=== PATIENT | female | born 1970 | race Caucasian/White ===

== ENCOUNTER 2021-01-24 09:21 | Outpatient (REF) | payer OTHER, SELFPAY ==
[2021-01-24 11:57] LABS: Alanine Aminotransferase 19 U/L (0-31); Albumin Level 4.5 g/dL (3.5-5.0); Alkaline Phosphatase 74 U/L (39-117); Anion Gap 13 (12-20); Aspartate Amino Transferase 17 U/L (5-31); Bilirubin Total 0.6 mg/dL (0.0-1.0); Blood Urea Nitrogen 11 mg/dL (9-16); Calcium 9.6 mg/dL (8.4-10.2); Carbon Dioxide 26 mmol/L (22-29); Chloride 104 mmol/L (96-108); Cholesterol 261 mg/dL; Estimated Glomerular Filt Rate > 60; Glucose Fasting 95 mg/dL (60-99); HDL Cholesterol 61 mg/dL; LDL Cholesterol Calculated 178 mg/dl; Potassium 4.5 mmol/L (3.3-5.1); Sodium 138 mmol/L (135-145); Total Protein 7.3 g/dL (6.5-8.0); Triglycerides 111 mg/dL
[2021-01-24 12:02] LABS: Hematocrit 42.3 % (37-47); Hemoglobin 13.7 g/dl (12.0-16.0); Mean Corpuscular HGB Conc 32.4 g/dl (31.0-35.0); Mean Corpuscular Hemoglobin 26.8 pg (27.0-33.0); Mean Corpuscular Volume 82.8 fL (80-98); Mean Platelet Volume 11.8 fL (9.4-12.3); Platelet Count 227 X10*3/uL (160-400); Red Blood Count 5.11 X10*6/uL (4.20-5.50); Red Cell Distribution Width 13.3 % (11.0-16.0)
[2021-01-24 12:20] LABS: TSH reflex Free T4 1.14 uIU/mL (0.32-4.0)
[2021-01-24 13:19] LABS: CT PCR NOT DETECTED (Not Detect.); NG PCR NOT DETECTED (Not Detect.)
== END 2021-01-24 09:22 | disposition home or self-care (01) ==
LOC: HO.LAB 09:21
PROVIDERS: Visit Provider Internal Medicine
DX: Z00.00 Encounter for general adult medical examination without abnormal findings (principal); Z12.4 Encounter for screening for malignant neoplasm of cervix; Z11.3 Encounter for screening for infections with a predominantly sexual mode of transmission
CPT/HCPCS: 36415; 80053; 80061; 84443; 85027; 87491; 87591; 88142

== ENCOUNTER 2021-01-24 09:35 | Outpatient (REF) | payer OTHER, SELFPAY | END 2021-01-24 09:36 | disposition home or self-care (01) | LOC: HO.HMGCLDS 09:35 | PROVIDERS: PCP Internal Medicine; Visit Provider Internal Medicine | DX: Z13.89 Encounter for screening for other disorder (principal) ==

== ENCOUNTER 2021-03-17 15:47 | Outpatient (REF) | payer OTHER, SELFPAY ==
--- NOTE | ~2021-03-17 | MM_ITS ---
EXAMINATION: MM SCREENING DIGITAL BREAST TOMOSYNTHESIS, BILATERAL CLINICAL INFORMATION: Screening. Asymptomatic. The lifetime risk of breast cancer based on the Tyrer-Cuzick Model is 12%. COMPARISON: Mammography: None TECHNIQUE: Digital breast tomosynthesis is performed in both the craniocaudal and mediolateral oblique views along with computer-aided detection (CAD). Synthesized 2D images are generated from the tomosynthesis. FINDINGS: There are scattered areas of fibroglandular density (ACR BI-RADS breast composition Category b). RIGHT BREAST: 2 lobulated circumscribed densities are seen within the upper outer aspect of the right breast for which spot compression film and possible ultrasound is recommended. No suspicious grouping of microcalcifications is identified. LEFT BREAST: 2 circumscribed densities which are lobular are seen within the lateral aspect of the left breast one of which is inferior and the other along nipple line. No suspicious grouping of microcalcifications identified. MM/MM tomosynthesis screening BI IMPRESSION: Bilateral breast densities which may represent intra-mammary lymph nodes. Spot compression views and ultrasound recommended for further evaluation. ASSESSMENT: BI-RADS 0: Incomplete - Need Additional Imaging Evaluation RECOMMENDATION: 1. Additional views of both breasts. 2. Targeted ultrasound if warranted after review of the additional views. 3. Radiology department staff will contact the patient for additional imaging. This patient's information was entered into a reminder system with a target due date for their next mammogram.
== END 2021-03-17 15:48 | disposition home or self-care (01) ==
LOC: HO.MAMMO 15:47
PROVIDERS: Visit Provider Internal Medicine
DX: Z12.31 Encounter for screening mammogram for malignant neoplasm of breast (principal)
CPT/HCPCS: 77063; 77067

== ENCOUNTER 2021-03-21 11:18 | Outpatient (REF) | payer OTHER, SELFPAY ==
--- NOTE | ~2021-03-21 | MM_ITS ---
EXAMINATION: MM DIAGNOSTIC DIGITAL BREAST TOMOSYNTHESIS, BILATERAL BILATERAL TARGETED BREAST ULTRASOUND CLINICAL INFORMATION: Bilateral densities. COMPARISON: Mammography: 03/17/2021 TECHNIQUE: Digital breast tomosynthesis is performed. 2D images are generated from the tomosynthesis. The following views are obtained: Bilateral spot compression views and craniocaudal and 90 degree mediolateral projections. Targeted bilateral breast ultrasound. FINDINGS: There are scattered areas of fibroglandular density (ACR BI-RADS breast composition Category b). Additional views of the right breast demonstrate persistence of an approximately 10 x 8 mm lobular circumscribed density approximately 9 cm from the nipple superiorly. The deeper superior density appears to represent superimposed fibroglandular tissue for which 6-month follow-up study is recommended. Within the left breast there is persistence of a circumscribed lobular density measuring approximately 9 x 6 mm in size approximately 6 cm from the nipple. This is seen about the inferior lateral aspect of the left breast. The density about the deep lateral aspect of the left breast appears to represent superimposed breast parenchyma for which 6-month follow-up study is recommended. Targeted right breast ultrasound demonstrates at the 12 o'clock position approximately 8 cm from the nipple a complex grouping of cysts with increased through sound transmission and no distal sound shadowing. This measures approximately 1.5 x 1.0 x 0.4 cm in size and has a small amount of blood flow within tissue between some cysts. The lesion is wider than it is tall. Within the left breast there is what appears to be either a complex cyst or cluster of cysts without internal vascularity. There is no distal sound shadowing and there is some mild distal sound enhancement seen. Results are discussed with the patient at time of visit. MM/MM tomosynthesis added view BI IMPRESSION: Bilateral complex cystic lesions identified for which bilateral targeted breast ultrasound in 6 months is recommended. Bilateral regions of asymmetric tissue for six-month bilateral mammography is recommended. ASSESSMENT: BI-RADS 3: Probably Benign. RECOMMENDATION: Diagnostic mammography in 6 months with bilateral targeted breast ultrasound. This patient's information was entered into a reminder system with a target due date for their next mammogram.
--- NOTE | ~2021-03-21 | US_ITS ---
EXAMINATION: US DIAGNOSTIC ULTRASOUND BREAST, LEFT CLINICAL INFORMATION: Bilateral densities. COMPARISON: Mammography of same day and March 17, 2021. TECHNIQUE: Ultrasound of the breast is performed with real-time gold scale imaging and color Doppler. FINDINGS: Targeted right breast ultrasound demonstrates at the 12 o'clock position approximately 8 cm from the nipple a complex grouping of cysts with increased through sound transmission and no distal sound shadowing. This measures approximately 1.5 x 1.0 x 0.4 cm in size and has a small amount of blood flow within tissue between some cysts. The lesion is wider than it is tall. Within the left breast there is what appears to be either a complex cyst or cluster of cysts without internal vascularity. There is no distal sound shadowing and there is some mild distal sound enhancement seen. Results are discussed with the patient at time of visit. US/US breast LT limited IMPRESSION: Bilateral complex cystic lesions identified for which bilateral targeted breast ultrasound in 6 months is recommended. Bilateral regions of asymmetric tissue for six-month bilateral mammography is recommended. ASSESSMENT: BI-RADS 3: Probably Benign. RECOMMENDATION: Diagnostic mammography in 6 months with bilateral targeted breast ultrasound.
--- NOTE | ~2021-03-21 | US_ITS ---
EXAMINATION: US DIAGNOSTIC ULTRASOUND BREAST, RIGHT CLINICAL INFORMATION: Bilateral densities. COMPARISON: Mammography of same day and March 17, 2021. TECHNIQUE: Ultrasound of the breast is performed with real-time gold scale imaging and color Doppler. FINDINGS: Targeted right breast ultrasound demonstrates at the 12 o'clock position approximately 8 cm from the nipple a complex grouping of cysts with increased through sound transmission and no distal sound shadowing. This measures approximately 1.5 x 1.0 x 0.4 cm in size and has a small amount of blood flow within tissue between some cysts. The lesion is wider than it is tall. Within the left breast there is what appears to be either a complex cyst or cluster of cysts without internal vascularity. There is no distal sound shadowing and there is some mild distal sound enhancement seen. Results are discussed with the patient at time of visit. US/US breast RT limited IMPRESSION: Bilateral complex cystic lesions identified for which bilateral targeted breast ultrasound in 6 months is recommended. Bilateral regions of asymmetric tissue for six-month bilateral mammography is recommended. ASSESSMENT: BI-RADS 3: Probably Benign. RECOMMENDATION: Diagnostic mammography in 6 months with bilateral targeted breast ultrasound.
== END 2021-03-21 11:19 | disposition home or self-care (01) ==
LOC: HO.MAMMO 11:18
PROVIDERS: Visit Provider Internal Medicine
DX: R92.2 Inconclusive mammogram (principal)
CPT/HCPCS: 76642; 77062; 77066

== ENCOUNTER 2021-08-08 16:26 | Outpatient (REF) | payer OTHER, SELFPAY ==
[2021-08-08 18:53] LABS: Influenza A PCR NEGATIVE (Negative); Influenza B PCR NEGATIVE (Negative); Resp Syncy Virus RNA Qual PCR NEGATIVE (Negative); SARS COV2 PCR INHOUSE NEGATIVE (Negative)
== END 2021-08-08 16:27 | disposition home or self-care (01) ==
LOC: HO.LNP 16:26
PROVIDERS: Visit Provider Internal Medicine
DX: Z20.822 Contact with and (suspected) exposure to COVID-19 (principal); R43.9 Unspecified disturbances of smell and taste
CPT/HCPCS: 0241U

== ENCOUNTER 2021-08-21 14:21 | Outpatient (REF) | payer OTHER, SELFPAY ==
--- NOTE | ~2021-08-21 | MM_ITS ---
EXAMINATION: MM DIAGNOSTIC DIGITAL BREAST TOMOSYNTHESIS, BILATERAL US DIAGNOSTIC ULTRASOUND BREAST, BILATERAL CLINICAL INFORMATION: Short interval six-month follow-up asymmetric densities likely related to clustered/grouped cysts, initially noted at baseline exam. No known family history breast cancer. The lifetime risk of breast cancer based on the Tyrer-Cuzick Model is 12%. COMPARISON: Mammography: 03/21/2021, 03/17/2021 (baseline, BI-RADS 0); bilateral targeted breast ultrasound 03/21/2021. TECHNIQUE: Digital breast tomosynthesis is performed in both the craniocaudal and mediolateral oblique views along with computer-aided detection (CAD). Synthesized 2D images are generated from the tomosynthesis. Ultrasound left breast is performed 3:00 through 6:00 position and right breast 10:00 through 2:00 position. Grayscale imaging and color Doppler are performed without and with harmonics. FINDINGS: Mammography: There are scattered areas of fibroglandular density (ACR BI-RADS breast composition Category b). There is no significant mass or architectural abnormality. No developing density in either breast or abnormal calcifications. The axilla and skin contours are unremarkable. The bilobed nodularity 6:00 mid left breast noted at baseline exam is decreased. The lobulated nodule corresponding to grouped cysts anterior mid 12:00 right breast appear stable. Ultrasound: Targeted ultrasound left breast demonstrates small benign cyst with avascular internal septation 4:00 position approximately 5 cm from nipple measuring 0.5 cm. This is decreased in size from prior ultrasound measurements 0.7 x 0.6 x 0.6 cm. There is no solid mass or architectural abnormality. Finding is considered to be benign. Targeted ultrasound right breast demonstrates stable grouped microcysts 12:00 position 5 cm from nipple measuring approximately 1.5 x 1.0 x 0.5 cm. There is spoke wheel pattern of septation and no interval solid component. This may be reassessed again at time of annual bilateral mammography, due in 6 months. Results are provided to the patient at time of visit by the technologist. MM/MM tomosynthesis diagnostic BI IMPRESSION: 1.Right: Grouped microcysts 12:00 position stable. Mammography stable. 2. Left: Benign complicated cyst on ultrasound decreased. No mammographic evidence of malignancy. ASSESSMENT: BI-RADS 3: Probably Benign RECOMMENDATION: Diagnostic mammography and targeted right breast ultrasound at time of annual bilateral mammography, due in 6 months. This patient's information was entered into a reminder system with a target due date for their next mammogram.
== END 2021-08-21 14:22 | disposition home or self-care (01) ==
LOC: HO.MAMMO 14:21
PROVIDERS: Visit Provider Internal Medicine
DX: R92.2 Inconclusive mammogram (principal)
CPT/HCPCS: 76642; 77062; 77066

== ENCOUNTER 2021-09-18 06:24 | Outpatient (REF) | payer OTHER, SELFPAY | END 2021-09-18 06:25 | disposition home or self-care (01) | LOC: HO.HMGCLDS 06:24 | PROVIDERS: Visit Provider Internal Medicine | DX: Z20.822 Contact with and (suspected) exposure to COVID-19 (principal) | CPT/HCPCS: C9803; U0003; U0005 ==

== ENCOUNTER 2022-01-15 09:36 | Outpatient (REF) | payer OTHER, SELFPAY ==
[2022-01-15 13:10] LABS: Influenza A PCR NEGATIVE (Negative); Influenza B PCR NEGATIVE (Negative); Resp Syncy Virus RNA Qual PCR NEGATIVE (Negative); SARS COV2 PCR INHOUSE NEGATIVE (Negative)
== END 2022-01-15 09:37 | disposition home or self-care (01) ==
LOC: HO.LAB 09:36
PROVIDERS: Visit Provider Nurse Practitioner Acute Care
DX: R68.89 Other general symptoms and signs (principal); Z20.822 Contact with and (suspected) exposure to COVID-19
CPT/HCPCS: 0241U

== ENCOUNTER 2022-04-27 13:55 | Outpatient (REF) | payer OTHER, SELFPAY ==
--- NOTE | ~2022-04-27 | MM_ITS ---
EXAMINATION: MM DIAGNOSTIC DIGITAL BREAST TOMOSYNTHESIS, BILATERAL US DIAGNOSTIC ULTRASOUND BREAST, RIGHT CLINICAL INFORMATION: Due for yearly. Also follow-up clustered microcysts 12:00 right breast initially noted at baseline. The lifetime risk of breast cancer based on the Tyrer-Cuzick Model is 17%. COMPARISON: Mammography: 08/21/2021, 03/21/2021, 03/17/2021 (baseline, BI-RADS 0), bilateral breast ultrasound 08/21/2021, 03/21/2021. TECHNIQUE: Digital breast tomosynthesis is performed in both the craniocaudal and mediolateral oblique views along with computer-aided detection (CAD). Synthesized 2D images are generated from the tomosynthesis. Ultrasound right breast is targeted to the upper breast using grayscale imaging and color Doppler without and with harmonics. FINDINGS: There are scattered areas of fibroglandular density (ACR BI-RADS breast composition Category b). Parenchymal pattern is similar to prior studies. There are scattered small stable asymmetries. No developing density or interval significant mass or architectural abnormality. No abnormal calcifications. The axilla and skin contours are unremarkable. No significant changes. Ultrasound right breast demonstrates focal grouped microcysts encompassing an area of approximately 1.5 x 0.7 x 0.9 cm. There is a central spoke wheel pattern of septation as before. No interval solid component or suspicious color flow. No interval solid mass or architectural abnormality. Results are provided to the patient at time of visit by the technologist. Management plan is for follow-up right ultrasound at next bilateral annual mammography to conclude long-term surveillance. MM/MM tomosynthesis diagnostic BI IMPRESSION: -Mammography shows no significant changes from prior studies. -Stable clustered microcysts 12:00 right breast. ASSESSMENT: BI-RADS 3: Probably Benign RECOMMENDATION: Diagnostic bilateral mammography and right breast ultrasound at time of next annual exam, due in 12 months. This patient's information was entered into a reminder system with a target due date for their next mammogram.
== END 2022-04-27 13:56 | disposition home or self-care (01) ==
LOC: HO.MAMMO 13:55
PROVIDERS: PCP Internal Medicine; Visit Provider Internal Medicine
DX: N63.15 Unspecified lump in the right breast, overlapping quadrants (principal)
CPT/HCPCS: 76642; 77062; 77066

== ENCOUNTER 2023-04-23 11:00 | Outpatient (AMB) | payer OTHER, SELFPAY ==
--- NOTE | 2023-04-23 11:32 | MHC.PC.OV ---
Vital Signs 04/23/23 11:33 Height 5 ft 2 in Weight 238 lb 6 oz BMI 43.6 BP 130/84 Blood Pressure Location Rt brachial Position Sitting Pulse 82 Pulse Source Pulse Oximeter Pulse Oximetry (%) 96 Oxygen Delivery Method Room Air Intake Visit Reasons: Joint Pain/ Lack Of Energy Intake Note: pt says she has been having weight gain,low energy,joint pain and swollen feet pt says this has been over the last year Allergies No Known Allergies Allergy (Verified 04/23/23 11:35) Medication List - Last Reconciled 04/23/23 by Franci Thakkar MD acetaminophen ER (Tylenol Arthritis Pain) 1,300 mg PO Q8H Tobacco use date assessed: 04/23/23 Dental Screening Dental Screen Date: 04/23/23 Did you have a dental visit in the last 12 months?: No Did you have a dental problem in the last 6 months where you did not have access to dental care?: No Was dental information given to patient?: Patient has dentist HPI Joint Pain/ Lack Of Energy HPI Details Pt presents bilateral knee and feet pain and stiffness for 1 year, getting worse. Pt gained 27 lbs in 2 years. Patient complains of feeling tired not getting restful sleep at night an episode of witnessed apnea. [facility] Medical History Annual physical exam Surgical History H/O LEEP Family History Father CVD (cardiovascular disease) CAD (coronary artery disease) Mother No problems noted. Social History Alcohol intake: current Alcohol intake frequency: holidays/special occasions only Patient Tobacco Use Status: Former Tobacco user e-Cigarette/Vaping Use: Never Used Cognitive needs: No Hearing needs: No Vision needs: No Review of Systems Const All systems reviewed & are unremarkable except as noted in HPI and below Reports no additional complaints Eyes Reports no additional complaints ENT Reports no additional complaints Card Reports no additional complaints Resp Reports no additional complaints GI Reports no additional complaints Reports no additional complaints Musc Reports no additional complaints Physical exam (Primary Care) Vital Signs: Last Vital Signs Pulse 82 04/23/23 11:33 BP 130/84 04/23/23 11:33 Pulse Ox 96 04/23/23 11:33 Oxygen Delivery Method Room Air 04/23/23 11:33 BMI result Body Mass Index 43.6 Tobacco/Smoking Status: Tobacco use Status Tobacco use date assessed 04/23/23 04/23/23 11:38 Patient Tobacco Use Status Former Tobacco user 04/23/23 11:38 e-Cigarette/Vaping Use Never Used 04/23/23 11:38 Const General: no acute distress HENMT Ears: hearing grossly normal bilaterally Mouth: Normal oral and palatal mucosa present Eyes General: appearance normal, both eyes and all related structures Neck Neck: Yes no lymphadenopathy and Yes supple Resp Effort & Inspection: normal respiratory effort Auscultation: clear to auscultation bilaterally Cardio Rhythm: regular rhythm Heart sounds: S1 normal heart sound present and S2 normal heart sound present GI Inspection: Yes normal to inspection Palpation (GI): Soft to palpation Percussion: Yes normal to percussion Auscultation: normal bowel sounds Extrem Other: Slightly decreased range of motion both knees no soft tissue swelling erythema warmth Assessment and Plan Assessment & Plan (1) Knee pain, bilateral: Code(s): M25.561 - Pain in right knee; M25.562 - Pain in left knee Plan: Check x-ray (2) Sleep apnea: Code(s): G47.30 - Sleep apnea, unspecified Plan: Check sleep study (3) Annual physical exam: Code(s): Z00.00 - Encounter for general adult medical examination without abnormal findings Plan: Patient will return for physical. She will schedule an appointment for mammogram will be referred to GI for colonoscopy (4) Fatigue: Code(s): R53.83 - Other fatigue Plan: Obtain fasting blood work including TSH and vitamin-D level (5) Arthralgia: Code(s): M25.50 - Pain in unspecified joint Plan: Check arthritis panel (6) Obese: Code(s): E66.9 - Obesity, unspecified Plan: Weight loss discussed with the patient Orders: Orders XR knee standing BI Today M25.561 - Pain in right knee, M25.562 - Pain in left knee Vitamin B12 and Folate Today M25.561 - Pain in right knee, M25.562 - Pain in left knee, R53.83 - Other fatigue, Z00.00 - Encounter for general adult medical examination without abnormal findings Comprehensive [place]. Panel Fast Today M25.561 - Pain in right knee, M25.562 - Pain in left knee, R53.83 - Other fatigue, Z00.00 - Encounter for general adult medical examination without abnormal findings Lipid Panel Today M25.561 - Pain in right knee, M25.562 - Pain in left knee, R53.83 - Other fatigue, Z00.00 - Encounter for general adult medical examination without abnormal findings TSH reflex Free T4 Today M25.561 - Pain in right knee, M25.562 - Pain in left knee, R53.83 - Other fatigue, Z00.00 - Encounter for general adult medical examination without abnormal findings Vitamin D 25-OH Total Today M25.561 - Pain in right knee, M25.562 - Pain in left knee, R53.83 - Other fatigue, Z00.00 - Encounter for general adult medical examination without abnormal findings Complete Blood Count Auto Diff Today M25.561 - Pain in right knee, M25.562 - Pain in left knee, R53.83 - Other fatigue, Z00.00 - Encounter for general adult medical examination without abnormal findings RT home sleep study Today G47.30 - Sleep apnea, unspecified, M25.561 - Pain in right knee, M25.562 - Pain in left knee, R53.83 - Other fatigue, Z00.00 - Encounter for general adult medical examination without abnormal findings Cyclic Citrullinated Peptide Today M25.50 - Pain in unspecified joint Rheumatoid Factor Today M25.50 - Pain in unspecified joint Erythrocyte Sedimentation Rate Today M25.50 - Pain in unspecified joint Referrals Gastroenterology Referral Z00.00 - Encounter for general adult medical examination without abnormal findings Coding Level of Care Code Est Pt Level 4 (71565) Diagnoses Knee pain, bilateral M25.561; M25.562 Sleep apnea G47.30 Annual physical exam Z00.00 Fatigue R53.83 Arthralgia M25.50 Obese E66.9
[2023-04-23 11:33] VITALS: BP 130/84; PULSE 82; O2SAT 96; BMI 43.6
== END 2023-04-23 12:23 | disposition home or self-care (01) ==
PROVIDERS: PCP Internal Medicine; Visit Provider Internal Medicine
DX: M25.561 Pain in right knee (principal); M25.562 Pain in left knee; E66.9 Obesity, unspecified; Z68.41 Body mass index [BMI] 40.0-44.9, adult; G47.30 Sleep apnea, unspecified; R53.83 Other fatigue
CPT/HCPCS: 99214

== ENCOUNTER 2023-04-26 06:31 | Outpatient (REF) | payer OTHER, SELFPAY ==
--- NOTE | ~2023-04-26 | XR_ITS ---
EXAMINATION: XR KNEE AP STANDING CLINICAL INFORMATION: Right knee pain. COMPARISON: None available. TECHNIQUE: AP bilateral standing view of the knees was obtained along with a lateral weightbearing view of each knee. FINDINGS: There are mild degenerative changes with narrowing of both compartments. No chondrocalcinosis is seen. Some minimal osteophyte formation present most marked in the medial and lateral femoral condyles on the left. A trace effusion is noted on the right with no left-sided joint effusion. No fractures or bony destructive lesions. XR/XR knee standing BI IMPRESSION: Mild degenerative changes both knees. Trace right knee effusion.
[2023-04-26 11:26] LABS: MANUAL DIFF FLAG NO
[2023-04-26 11:47] LABS: Basophils Percent Auto 0.5 % (0-2); Eosinophils Absolute Auto 0.1 X10*3/uL (0.0-0.4); Eosinophils Percent Auto 1.7 % (0-4); Hematocrit 39.9 % (37.0-47.0); Hemoglobin 12.4 g/dl (12.0-16.0); Imm Gran Abs Auto 0.02 X10*3/uL (0.00-0.03); Imm Gran Pct Auto 0.3 % (0.0-0.4); Lymphocytes Absolute Auto 1.5 X10*3/uL (1.2-4.9); Lymphocytes Percent Auto 22.5 % (20-40); Mean Corpuscular HGB Conc 31.1 g/dl (31.0-35.0); Mean Corpuscular Hemoglobin 25.7 pg (27.0-33.0); Mean Corpuscular Volume 82.6 fL (80.0-98.0); Mean Platelet Volume 11.6 fL (9.4-12.3); Monocytes Absolute Auto 0.5 X10*3/uL (0.1-1.2); Monocytes Percent Auto 8.3 % (2-11); Neutrophils Absolute Auto 4.3 x10*3/uL (2.0-8.3); Neutrophils Percent Auto 66.7 % (45-73); Platelet Count 319 X10*3/uL (160-400); Red Blood Count 4.83 X10*6/uL (4.20-5.50); Red Cell Distribution Width 14.2 % (11.0-16.0); White Blood Count 6.5 X10*3/uL (4.8-10.8)
[2023-04-26 12:08] LABS: Rheumatoid Factor < 13.0 IU/mL (<15.0)
[2023-04-26 12:25] LABS: Erythrocyte Sedimentation Rate 12 MM/HR (0-20)
[2023-04-26 12:38] LABS: Folate 6.5 ng/mL (> or = 4.0); Vitamin B12 347 pg/mL (200-900)
[2023-04-26 12:39] LABS: Alanine Aminotransferase 29 U/L (0-31); Alkaline Phosphatase 73 U/L (39-117); Anion Gap 14 (12-20); Aspartate Amino Transferase 20 U/L (5-31); Bilirubin Total 0.4 mg/dL (0.0-1.0); Blood Urea Nitrogen 13 mg/dL (9-16); Calcium 9.2 mg/dL (8.4-10.2); Carbon Dioxide 22 mmol/L (22-29); Chloride 105 mmol/L (96-108); Cholesterol 208 mg/dL; Estimated Glomerular Filt Rate > 60; Glucose Fasting 105 mg/dL (60-99); HDL Cholesterol 49 mg/dL; LDL Cholesterol Calculated 136 mg/dl; Potassium 4.1 mmol/L (3.3-5.1); Sodium 137 mmol/L (135-145); Total Protein 6.9 g/dL (6.5-8.0); Triglycerides 115 mg/dL
[2023-04-26 12:43] LABS: TSH reflex Free T4 2.15 uIU/mL (0.32-4.0); Vitamin D 25-OH Total 27.4 ng/mL (>30)
[2023-04-28 15:39] LABS: Cyclic Citrullinated Peptide <16 UNITS
== END 2023-04-26 06:32 | disposition home or self-care (01) ==
LOC: HO.HMGCX 06:31
PROVIDERS: PCP Internal Medicine; Visit Provider Internal Medicine
DX: Z00.00 Encounter for general adult medical examination without abnormal findings (principal); M25.50 Pain in unspecified joint; M25.561 Pain in right knee; M25.562 Pain in left knee; R53.83 Other fatigue
CPT/HCPCS: 36415; 73565; 80053; 80061; 82306; 82607; 82746; 84443; 85025; 85652; 86200; 86431

== ENCOUNTER 2023-05-05 13:49 | Outpatient (REF) | payer OTHER, SELFPAY ==
--- NOTE | ~2023-05-05 | MM_ITS ---
EXAMINATION: MM DIAGNOSTIC DIGITAL BREAST TOMOSYNTHESIS, BILATERAL US BREAST LIMITED, RIGHT MAMMOGRAPHY: CLINICAL INFORMATION: Due for yearly. Also follow-up clustered microcysts 12:00 right breast initially noted at Baseline exam. The lifetime risk of breast cancer based on the Tyrer-Cuzick Model is 17%. COMPARISON: Mammography: 04/27/2022, 08/21/2021, 03/21/2021, 03/17/2021. TECHNIQUE: Digital breast tomosynthesis is performed in both the craniocaudal and mediolateral oblique views along with computer-aided detection (CAD). Synthesized 2D images are generated from the tomosynthesis. 3-D bilateral nipple in profile CC views were also obtained. FINDINGS: There are scattered areas of fibroglandular density (ACR BI-RADS breast composition Category b). The overall parenchymal pattern is unchanged from prior studies. There are scattered small stable asymmetries bilaterally. No developing mass, area of architectural distortion, or suspicious grouped calcifications. Results were provided to the patient at time of visit by the technologist. ULTRASOUND: CLINICAL INFORMATION: 6 month follow-up complicated cyst 12:00 axis right breast. COMPARISON: 04/27/2022, 08/21/2021, 03/21/2021. TECHNIQUE: Targeted sonographic evaluation right breast 12:00 axis was performed using a high frequency linear transducer. Selected archived documentation. FINDINGS: RIGHT BREAST: There is a stable complicated cyst in the right breast at the 12:00 axis, 5 cm from the nipple, measuring 1.0 x 0.7 x 1.2 cm. This is unchanged, and has demonstrated a two-year stability, reflecting a benign entity. No additional suspicious abnormalities detected. MM/MM tomosynthesis diagnostic BI IMPRESSION: Stable benign findings right breast 12:00 axis related to a complicated cyst, demonstrating stability over 2 years. Otherwise, stable benign findings on bilateral mammography. Recommend resuming routine annual screening. OVERALL ASSESSMENT: Mammography: BI-RADS 2 - Benign Findings Ultrasound: BI-RADS 2 - Benign Findings RECOMMENDATION: 1 year F/U This patient's information was entered into a reminder system with a target due date for their next mammogram.
== END 2023-05-05 13:50 | disposition home or self-care (01) ==
LOC: HO.MAMMO 13:49
PROVIDERS: PCP Internal Medicine; Visit Provider Internal Medicine
DX: R92.2 Inconclusive mammogram (principal)
CPT/HCPCS: 76642; 77062; 77066

== ENCOUNTER → 2023-05-05 14:00 | Outpatient (BNV) | payer OTHER, SELFPAY | PROVIDERS: PCP Internal Medicine; Visit Provider Radiology Diagnostic Radiology | DX: N60.11 Diffuse cystic mastopathy of right breast (principal) | CPT/HCPCS: 76642; 77062; 77066 ==

== ENCOUNTER 2023-06-04 13:26 | Outpatient (AMB) | payer OTHER, SELFPAY ==
--- NOTE | 2023-06-04 13:40 | A.OFFPC_ITS ---
Vital Signs 06/04/23 13:41 Height 5 ft 2 in Weight 238 lb BMI 43.5 BP 104/66 Blood Pressure Location Lt brachial Position Sitting Pulse 90 Pulse Source Pulse Oximeter Pulse Oximetry (%) 96 Oxygen Delivery Method Room Air Intake Visit Reasons: 1 Month follow up/PE Intake Note: Ptis here today for 1 month follow up. Allergies No Known Allergies Allergy (Verified 06/04/23 13:43) Tobacco use date assessed: 06/04/23 HPI 1 Month follow up/PE HPI Details Pt presents for PE. [facility] Medical History (Updated 06/04/23 @ 14:05 by Franci Thakkar MD) Annual physical exam Surgical History H/O LEEP Family History Father CVD (cardiovascular disease) CAD (coronary artery disease) Mother No problems noted. Social History Alcohol intake: current Alcohol intake frequency: holidays/special occasions only Patient Tobacco Use Status: Former Tobacco user e-Cigarette/Vaping Use: Never Used Cognitive needs: No Hearing needs: No Vision needs: No Review of Systems Const All systems reviewed & are unremarkable except as noted in HPI and below Reports no additional complaints Eyes Reports no additional complaints ENT Reports no additional complaints Card Reports no additional complaints Resp Reports no additional complaints GI Reports no additional complaints Reports no additional complaints Skin/Breast Reports system reviewed and no additional complaints, except as documented Physical exam (Primary Care) Vital Signs: Last Vital Signs Pulse 90 06/04/23 13:41 BP 104/66 06/04/23 13:41 Pulse Ox 96 06/04/23 13:41 Oxygen Delivery Method Room Air 06/04/23 13:41 BMI result Body Mass Index 43.5 Tobacco/Smoking Status: Tobacco use Status Tobacco use date assessed 06/04/23 06/04/23 13:46 Patient Tobacco Use Status Former Tobacco user 06/04/23 13:46 e-Cigarette/Vaping Use Never Used 06/04/23 13:46 Const General: no acute distress HENMT Head: Yes normal to inspection Ears: hearing grossly normal bilaterally General nose exam: Normal external nose present Face and sinus: Yes normal facial exam Mouth: Normal oral and palatal mucosa present Throat: Yes posterior oropharynx normal Eyes General: appearance normal, both eyes and all related structures Neck Neck: Yes no lymphadenopathy and Yes supple Resp Effort & Inspection: normal respiratory effort Auscultation: clear to auscultation bilaterally Cardio Rhythm: regular rhythm Heart sounds: S1 normal heart sound present and S2 normal heart sound present GI Inspection: Yes normal to inspection Palpation (GI): Soft to palpation Percussion: Yes normal to percussion Auscultation: normal bowel sounds Assessment and Plan Assessment & Plan (1) Annual physical exam: Comment: NEGATIVE PAP SMEAR 01/2021 Code(s): Z00.00 - Encounter for general adult medical examination without abnormal findings Plan: WELL BALANCED DIET REGULAR PHYSICAL ACTIVITY DISCUSSED WITH THE PATIENT ,SHE IS UP-TO-DATE WITH MAMMOGRAM AND WILL HAVE A COLONOSCOPY (2) Obese: Code(s): E66.9 - Obesity, unspecified Plan: Weight loss discussed with the patient (3) Hyperlipidemia: Code(s): E78.5 - Hyperlipidemia, unspecified Plan: Low-cholesterol diet regular physical activity weight loss discussed with the patient return in 6 months with a fasting labs before to monitor lipid profile Orders: Orders Lipid Panel 6 Months E66.9 - Obesity, unspecified, E78.5 - Hyperlipidemia, unspecified Comprehensive [place]. Panel Fast 6 Months E66.9 - Obesity, unspecified, E78.5 - Hyperlipidemia, unspecified Hemoglobin A1c 6 Months E66.9 - Obesity, unspecified, E78.5 - Hyperlipidemia, unspecified Coding Level of Care Code Est Pt Prev Care 40-64y(08017) Diagnoses Annual physical exam Z00.00 Obese E66.9 Hyperlipidemia E78.5
[2023-06-04 13:41] VITALS: BP 104/66; PULSE 90; O2SAT 96; BMI 43.5
== END 2023-06-04 14:07 | disposition home or self-care (01) ==
PROVIDERS: PCP Internal Medicine; Visit Provider Internal Medicine
DX: Z00.00 Encounter for general adult medical examination without abnormal findings (principal); E66.9 Obesity, unspecified; E78.5 Hyperlipidemia, unspecified; Z68.41 Body mass index [BMI] 40.0-44.9, adult
CPT/HCPCS: 99396

== ENCOUNTER → 2023-06-14 13:50 | Outpatient (REF) | payer OTHER, SELFPAY | LOC: HO.SL 13:50 | PROVIDERS: PCP Internal Medicine; Visit Provider Internal Medicine | DX: G47.30 Sleep apnea, unspecified (principal) | CPT/HCPCS: 95806 ==

== ENCOUNTER → 2023-06-14 14:06 | Outpatient (BNV) | payer OTHER, SELFPAY | PROVIDERS: PCP Internal Medicine; Visit Provider Internal Medicine | DX: R06.83 Snoring (principal) | CPT/HCPCS: 95806 ==

== ENCOUNTER 2023-06-16 14:07 | Outpatient (AMB) | payer OTHER, SELFPAY ==
--- NOTE | 2023-06-16 14:14 | A.OFFVIS_ITS ---
Intake Vital Signs 06/16/23 14:15 Height 5 ft 2 in Weight 235 lb 4.862 oz BMI 43.0 BP 112/65 Blood Pressure Location Lt brachial Position Sitting Pulse 95 Intake Visit Reasons: Colonoscopy Screening Intake Note: Lorraine presents in the office as a colonoscopy screening. CC: She states that she is not having any concerns and just due for a colonoscopy. Allergies No Known Allergies Allergy (Verified 06/16/23 14:16) HPI Colonoscopy Screening HPI Details 52 year old? female here today for pre c olonoscopy screening.? Patient was sent to us by her PCP.? This is her first colonoscopy screening.? Patient denies any gastrointestinal symptoms in the past or at present.? Denies any personal or family history of gastrointestinal disease, colon polyps, or cancer.? Denies history of difficulty with sedation or anesthesia in the past.? Patient just recently had test for sleep apnea. Awaiting results. History of snoring when sleeping.? Denies any history of cardiac, renal, pulmonary, or hepatic disease.?? No history of infectious? diseases like hepatitis A, B, C, HIV or tuberculosis.? Patient is not on any anticoagulation therapy. [facility] Medical History Annual physical exam Surgical History H/O LEEP Family History Father CVD (cardiovascular disease) CAD (coronary artery disease) Mother No problems noted. Social History Alcohol intake: current Alcohol intake frequency: holidays/special occasions only Patient Tobacco Use Status: Former Tobacco user e-Cigarette/Vaping Use: Never Used Cognitive needs: No Hearing needs: No Vision needs: No Review of Systems Const Denies weight gain and Denies weight loss ENT Reports no additional complaints, Denies dysphagia and Denies odynophagia Card Reports no additional complaints Resp Reports no additional complaints GI Denies abdominal pain, Denies belching, Denies melena, Denies bloating, Denies change in bowel habits, Denies dysphagia, Denies excessive flatus, Denies dyspepsia, Denies heartburn, Denies diarrhea, Denies loose stools, Denies nausea, Denies odynophagia and Denies vomiting Musc Reports no additional complaints Neuro Reports no additional complaints Psych Reports no additional complaints Endo Reports no additional complaints Physical Exam Vital Signs: Last Vital Signs Pulse 95 06/16/23 14:15 BP 112/65 06/16/23 14:15 BMI result Body Mass Index 43.0 Const General: healthy appearing, no acute distress and well developed Nutritional Appearance: obese Orientation/consciousness: patient oriented x3 HEENT Head: Yes normal to inspection, Yes normocephalic and Yes atraumatic Face and sinus: Yes normal facial exam Mouth: Normal oral and palatal mucosa present Throat: Yes posterior oropharynx normal, Yes tonsils normal and Yes uvula midline Eyes General: appearance normal, both eyes and all related structures Neck Neck: Yes normal visual inspection, Yes full ROM and Yes trachea midline Thyroid: Thyroid normal Resp Effort & Inspection: normal respiratory effort, able to speak in complete sentences, no tracheal deviation and symmetric chest movement Auscultation: clear to auscultation bilaterally Cardio Rate: regular rate Heart sounds: S1 normal heart sound present and S2 normal heart sound present GI Inspection: Yes normal to inspection, No distended and Yes obesity Palpation (GI): Soft to palpation, not firm, nontender and No hepatosplenomegaly present Auscultation: normal bowel sounds General: Yes no CVA tenderness Back/Spine/Pelvis Back: no CVA tenderness Skin General skin exam: elasticity normal, turgor normal and dry skin Neuro General: patient oriented x3 Psych Appearance: grossly normal Mental Status: mental status grossly normal Speech and movement: Normal speech and movement present Assessment & Plan Assessment & Plan (1) Screen for colon cancer: Code(s): Z12.11 - Encounter for screening for malignant neoplasm of colon Plan: Patient denies any GI, cardiac or respiratory symptoms.? Denies any issues with anesthesia in the past.? Denies any history of sleep apnea, however reports snoring when sleeping. Just recently patient had sleep study to rule out sleep apnea.? No history infectious diseases in the past or present.? Not on any anticoagulation therapy.? No family or personal history of colon cancer or polyps.? Patient denies melena, hematochezia, unintentional weight loss or ribbon like stools.? Discussed at length the pre-procedure,? prep, diet & medications as well as what to expect prior, during and after the procedure.?? Stressed the importance of good bowel prep. ?Recommended the use of Vaseline or Calmoseptine OTC & baby wipes with bowel movements to promote comfort.? ?Patient verbalizes understanding and agrees to plan of care.? She was given the opportunity to ask questions and all questions answered.? We will see her after the procedure.? Medications: New bisacodyl (Dulcolax (bisacodyl)) take 2 tabs at noon the day before your colonoscopy 10 mg (2 x 5 mg) PO ONCE 1 day 2 tabs 0RF Z12.11 - Encounter for screening for malignant neoplasm of colon polyethylene glycol 3350 (Miralax) As directed by gastroenterology department at [facility] 238 grams PO ONCE 238 grams 0RF Z12.11 - Encounter for screening for malignant neoplasm of colon Coding Level of Care Code New Pt Level 3 (26838) Diagnoses Screen for colon cancer Z12.11 Time Spent (min) 40 Comment 30 minutes spent with patient and additional 10 minutes spent reviewing her records
[2023-06-16 14:15] VITALS: BP 112/65; PULSE 95; BMI 43.0
== END 2023-06-16 15:10 | disposition home or self-care (01) ==
PROVIDERS: PCP Internal Medicine; Visit Provider Nurse Practitioner Family
DX: Z01.818 Encounter for other preprocedural examination (principal); Z12.11 Encounter for screening for malignant neoplasm of colon
CPT/HCPCS: S0285

== ENCOUNTER → 2023-06-16 14:07 | Outpatient (BNVA) | payer OTHER, SELFPAY | PROVIDERS: PCP Internal Medicine; Visit Provider Nurse Practitioner Family ==

== ENCOUNTER 2023-12-04 06:36 | Outpatient (REF) | payer OTHER, SELFPAY ==
[2023-12-04 12:08] LABS: Estimated Average Glucose 108 mg/dL; Hemoglobin A1c % 5.4 % (<6.0)
[2023-12-04 12:30] LABS: Alanine Aminotransferase 29 U/L (0-31); Albumin Level 4.1 g/dL (3.5-5.0); Alkaline Phosphatase 72 U/L (39-117); Anion Gap 13 (12-20); Aspartate Amino Transferase 21 U/L (5-31); Bilirubin Total 0.5 mg/dL (0.0-1.0); Blood Urea Nitrogen 11 mg/dL (9-16); Calcium 9.8 mg/dL (8.4-10.2); Carbon Dioxide 27 mmol/L (22-29); Chloride 105 mmol/L (96-108); Cholesterol 230 mg/dL (<200); Estimated Glomerular Filt Rate > 60; Glucose Fasting 105 mg/dL (60-99); HDL Cholesterol 53 mg/dL (>40); LDL Cholesterol Calculated 156 mg/dL (<100); Potassium 4.5 mmol/L (3.3-5.1); Sodium 140 mmol/L (135-145); Total Protein 7.2 g/dL (6.5-8.0); Triglycerides 106 mg/dL (<150)
== END 2023-12-04 06:37 | disposition home or self-care (01) ==
LOC: HO.HMGCLDS 06:36
PROVIDERS: PCP Internal Medicine; Visit Provider Internal Medicine
DX: E78.5 Hyperlipidemia, unspecified (principal); E66.9 Obesity, unspecified
CPT/HCPCS: 36415; 80053; 80061; 83036

== ENCOUNTER 2023-12-09 13:19 | Outpatient (AMB) | payer OTHER, SELFPAY ==
--- NOTE | 2023-12-09 13:22 | MHC.PC.OV ---
Vital Signs 12/09/23 13:24 Height 5 ft 2 in Weight 240 lb BMI 43.9 BP 116/70 Blood Pressure Location Lt brachial Position Sitting Pulse 87 Pulse Source Pulse Oximeter Pulse Oximetry (%) 97 Oxygen Delivery Method Room Air Intake Visit Reasons: 6 month fu Intake Note: Pt is here today for her 6 mo. f/u Allergies No Known Allergies Allergy (Verified 06/16/23 14:16) Medication List - Last Reconciled 12/09/23 by Franci Thakkar MD acetaminophen ER (Tylenol Arthritis Pain) 1,300 mg PO Q8H bisacodyl (Dulcolax (bisacodyl)) 10 mg (2 x 5 mg) PO ONCE 1 day cholecalciferol (vitamin D3) 25 mcg PO DAILY polyethylene glycol 3350 (Miralax) 238 grams PO ONCE Tobacco use date assessed: 12/09/23 Dental Screening Dental Screen Date: 12/09/23 Did you have a dental visit in the last 12 months?: Yes Did you have a dental problem in the last 6 months where you did not have access to dental care?: No Was dental information given to patient?: Patient has dentist HPI 6 month fu HPI Details Pt presents for hyperlipid, diet controlled. [facility] Medical History Annual physical exam Surgical History H/O LEEP Family History Father CVD (cardiovascular disease) CAD (coronary artery disease) Mother No problems noted. Social History Alcohol intake: current Alcohol intake frequency: holidays/special occasions only Patient Tobacco Use Status: Former Tobacco user e-Cigarette/Vaping Use: Never Used Cognitive needs: No Hearing needs: No Vision needs: No Questionnaire PHQ-9 Over the last 2 weeks, how often have you been bothered by any of the following problems? 1. Little interest or pleasure in doing things: more than half the days 2. Feeling down, depressed, or hopeless: several days 3. Trouble falling or staying asleep, or sleeping too much: more than half the days 4. Feeling tired or having little energy: several days 5. Poor appetite or overeating: more than half the days 6. Feeling bad about yourself - or that you are a failure or have let yourself or your family down: several days 7. Trouble concentrating on things, such as reading the newspaper or watching television: several days 8. Moving or speaking so slowly that other people could have noticed. Or the opposite - being so fidgety or restless that you have been moving around a lot more than usual: several days 9. Thoughts that you would be better off or of hurting yourself in some way: not at all Total score: 11 Depression Screening Interpretation: Negative Depression Screening Done: Yes Source: Developed by Drs. Michael Espino, Germania Marte, Vince Guerrier and colleagues, with an educational sergey from [employer]. Thrive Questionnaire Date Thrive assessed: 12/09/23 I am a: Patient What is your living situation today?: I have a steady place to live Within the past 12 months, did the food you bought not last and you didn't have the money to get more?: Never true Within the past 12 months, did you worry whether your food would run out before you got money to buy more?: Never true Do you have trouble paying for medicines?: No Do you have trouble getting transportation to medical appointments?: No Do you have trouble paying your heating and electricity bill?: No Do you have trouble taking care of your child, family member or friend?: No Do you have trouble with day-to-day activities such as bathing, preparing meals, shopping, managing finances, etc.?: No Are you currently unemployed and looking for a job?: No Are you interested in more education?: No THRIVE Score: 0 RUBEN-7 AMB Questionnaire RUBEN-7 Date RUBEN - 7 assessed: 12/09/23 Feeling nervous, anxious, or on edge: 0 = Not at all Not being able to stop or control worryin = Not at all Worrying too much about different things: 0 = Not at all Trouble relaxin = Not at all Being so restless that it is hard to sit still: 0 = Not at all Becoming easily annoyed or irritable: 1 = Several days Feeling afraid as if something awful might happen: 1 = Several days Total RUBEN-7 score (0-4 normal; 5-9 mild; 10-14 moderate; 15-21 severe): 2 Source: Developed by Drs. Michael Espino, Germania Marte, Vince Guerrier and colleagues, with an educational sergey from [employer]. Review of Systems Const All systems reviewed & are unremarkable except as noted in HPI and below Reports no additional complaints Eyes Reports no additional complaints ENT Reports no additional complaints Card Reports no additional complaints Resp Reports no additional complaints GI Reports no additional complaints Reports no additional complaints Physical exam (Primary Care) Vital Signs: Last Vital Signs Pulse 87 12/09/23 13:24 BP 116/70 12/09/23 13:24 Pulse Ox 97 12/09/23 13:24 Oxygen Delivery Method Room Air 12/09/23 13:24 BMI result Body Mass Index 43.9 Tobacco/Smoking Status: Tobacco use Status Tobacco use date assessed 12/09/23 12/09/23 13:27 Patient Tobacco Use Status Former Tobacco user 12/09/23 13:24 e-Cigarette/Vaping Use Never Used 12/09/23 13:24 PHQ-9: PHQ-9 Score PHQ-9: Total score 11 12/09/23 13:59 Depression Screening Interpretation: Negative Thrive Assessment: Date of Thrive Assessment Date Thrive assessed 12/09/23 12/09/23 13:59 Const General: no acute distress HENMT Head: Yes normal to inspection Ears: hearing grossly normal bilaterally General nose exam: Normal external nose present Mouth: Normal oral and palatal mucosa present Eyes General: appearance normal, both eyes and all related structures Neck Neck: Yes no lymphadenopathy and Yes supple Resp Effort & Inspection: normal respiratory effort Auscultation: clear to auscultation bilaterally Cardio Rhythm: regular rhythm Heart sounds: S1 normal heart sound present and S2 normal heart sound present GI Inspection: Yes normal to inspection Palpation (GI): Soft to palpation Percussion: Yes normal to percussion Auscultation: normal bowel sounds Assessment and Plan Assessment & Plan (1) Obese: Code(s): E66.9 - Obesity, unspecified Plan: INCREASE PHYSICAL ACTIVITY DECREASE CALORIC INTAKE DISCUSSED WITH THE PATIENT. SHE WILL BE REFERRED TO [facility] (2) Hyperlipidemia: Code(s): E78.5 - Hyperlipidemia, unspecified Plan: Low-cholesterol diet increase physical activity weight loss discussed with the patient. She declined taking statin. Follow-up in 6 months with a fasting labs before (3) Vitamin D deficiency: Code(s): E55.9 - Vitamin D deficiency, unspecified Plan: Continue vitamin-D supplement Orders: Orders Complete Blood Count Auto Diff 6 Months E66.9 - Obesity, unspecified, E78.5 - Hyperlipidemia, unspecified TSH reflex Free T4 6 Months E66.9 - Obesity, unspecified, E78.5 - Hyperlipidemia, unspecified Vitamin D 25-OH Total 6 Months E55.9 - Vitamin D deficiency, unspecified Comprehensive [place]. Panel Fast 6 Months E66.9 - Obesity, unspecified, E78.5 - Hyperlipidemia, unspecified Lipid Panel 6 Months E66.9 - Obesity, unspecified, E78.5 - Hyperlipidemia, unspecified UA w Microscopic 6 Months E66.9 - Obesity, unspecified, E78.5 - Hyperlipidemia, unspecified Referrals Vice President Of Marketing Nutrition Referral E66.9 - Obesity, unspecified, E78.5 - Hyperlipidemia, unspecified Coding Level of Care Code Est Pt Level 4 (19458) Diagnoses Obese E66.9 Hyperlipidemia E78.5 Vitamin D deficiency E55.9
[2023-12-09 13:24] VITALS: BP 116/70; PULSE 87; O2SAT 97; BMI 43.9
== END 2023-12-09 14:35 | disposition home or self-care (01) ==
PROVIDERS: PCP Internal Medicine; Visit Provider Internal Medicine
DX: E78.5 Hyperlipidemia, unspecified (principal); E55.9 Vitamin D deficiency, unspecified; E66.9 Obesity, unspecified; Z68.41 Body mass index [BMI] 40.0-44.9, adult
CPT/HCPCS: 99214

== ENCOUNTER 2023-12-27 11:44 | Day surgery (SDC) | payer OTHER, SELFPAY ==
--- NOTE | 2023-12-24 10:00 | P.CONAN_ITS ---
Documented by User: Caroline Rowell NP 12/24/23 10:01 HPI - Anesthesia Eval Consult details Narrative: 53yo F for Colonoscopy PMFSH Active Problems Active Problems: All Active Problems Vitamin D deficiency (Acute) Hyperlipidemia (Acute) Obese (Acute) Arthralgia (Acute) Fatigue (Acute) Sleep apnea (Acute) Knee pain, bilateral (Acute) Acute conjunctivitis of both eyes (Acute) Acute bronchitis (Acute) Chest congestion (Acute) Flu-like symptoms (Acute) Upper respiratory tract infection (Acute) Annual physical exam (Acute) Past Medical History Medical History Annual physical exam Family History Family History Father CVD (cardiovascular disease) CAD (coronary artery disease) Mother No problems noted. Surgical History Surgical History H/O LEEP Social History Social History Alcohol intake: current Alcohol intake frequency: holidays/special occasions only Patient Tobacco Use Status: Former Tobacco user e-Cigarette/Vaping Use: Never Used Use of substances other than those prescribed or required for medical reasons: No Are you DNR?: No Advance Directives: No Advance Directives Information Provided: Yes Cognitive needs: No Hearing needs: No Vision needs: No Meds Allergies Allergy/AdvReac Type Severity Reaction Status Date / Time No Known Allergies Allergy Verified 12/27/23 12:27 Home Medications ?Medication ?Instructions ?Recorded ?Confirmed ?Last Taken ?Type acetaminophen 650 mg 1,300 mg PO Q8H 04/23/23 12/27/23 Unknown History tablet,extended release (Tylenol Arthritis Pain) cholecalciferol (vitamin D3) 25 25 mcg PO DAILY 06/16/23 12/27/23 Unknown Histor y mcg (1,000 unit) capsule Assessment and Plan Assessment Anesthesia Assessment: Chart Reviewed Documented by User: Marianne Davenport MD 12/27/23 12:53 PMFSH Past Medical History Medical History Annual physical exam Family History Family History Father CVD (cardiovascular disease) CAD (coronary artery disease) Mother No problems noted. Family history of problems with anesthesia: No Surgical History Surgical History H/O LEEP History of Problems with Anesthesia: No Social History Social History Alcohol intake: current Alcohol intake frequency: holidays/special occasions only Patient Tobacco Use Status: Former Tobacco user e-Cigarette/Vaping Use: Never Used Use of substances other than those prescribed or required for medical reasons: No Are you DNR?: No Advance Directives: No Advance Directives Information Provided: Yes Cognitive needs: No Hearing needs: No Vision needs: No Meds Allergies Allergy/AdvReac Type Severity Reaction Status Date / Time No Known Allergies Allergy Verified 12/27/23 12:27 Home Medications ?Medication ?Instructions ?Recorded ?Confirmed ?Last Taken ?Type acetaminophen 650 mg 1,300 mg PO Q8H 04/23/23 12/27/23 Unknown History tablet,extended release (Tylenol Arthritis Pain) cholecalciferol (vitamin D3) 25 25 mcg PO DAILY 06/16/23 12/27/23 Unknown History mcg (1,000 unit) capsule Exam Airway Mallampati Class: II TM Dist: >3cm Neck ROM: Full Partial: Upper Heart: rrr Lungs: cta Assessment and Plan Assessment Anesthesia Assessment: Anesthesia Plan Discussed Final Anesthetic Review Family History of Problems with Anesthesia: No History of Problems with Anesthesia: No NPO: Yes ASA Class: III Final Preanesthetic Review: No Changes in Pt Med Stat, Meds/Allgs Chart Reviewed and Consent Obtained/Reviewed Patient Risk: Low Procedure Risk: Low Anesthetic Plan Anesthetic Plan: MAC: Disposition: Standard PACU
--- NOTE | 2023-12-27 12:03 | MHC.SHP ---
Pre-Procedural Eval Section A - 24 Hr Update-Section A only Date of Service: 12/27/23 The patient is an INPATIENT: No The patient has been examined within 24 hours of the surgical procedure. The History & Physical has been completed within 30 days and I have reviewed it.: No Section B - Complete if H&P > 30 days Chief Complaint: Colon cancer screening Relevant Family History (Specify if Yes): No Relevant Social History: Tobacco Use (Former smoker) Present Medications: see Short Stay Collaborative assessment Medical History: Significant History (Hyperlipidemia, history of sleep apnea) History of Previous Operations: Relevant previous surgery/procedure and date(s) (H/O LEEP) Allergies: Allergies Allergy/AdvReac Type Severity Reaction Status Date / Time No Known Allergies Allergy Verified 06/16/23 14:16 Review of Systems Sugical H&P ROS: Negative: Constitution, Cardiovascular, Respiratory and Gastrointestinal Exam Surgical H&P Exam: Normal: Heart, Normal: Lungs, Normal: Extremities and Normal: Abdomen Plan Diagnosis/Plan: Unchanged I have reviewed the history and physical and performed a pertinent physical examination on my patient. No changes have occurred unless specified. Time Spent With Patient Time: Total time managing care of this patient today ____ minutes.
[2023-12-27 12:28] VITALS: BMI 42.1
[2023-12-27 12:32] VITALS: BP 155/83; PULSE 76; RESP 16; TEMP 36.8; O2SAT 95
[2023-12-27] MEDS: Lactated Ringers 1,000 ML 100 ML IVCONT (12:43)
--- NOTE | 2023-12-27 12:56 | W.PM.OPN ---
Operative Note Operative Note Date of Service: 12/27/23 Narrative: COLONOSCOPY TILL CECUM WITH BIOPSIES Pre-op diagnosis: Colon cancer screening. Post-op diagnosis:? Colon polyps, Diverticulosis. Endoscopist:? Lizeth Phan MD Anesthesia:?MAC Consent: Indications for the procedure and potential complications of bleeding, perforation, reaction to medications and missed diagnosis were discussed with the patient and informed consent was obtained. Instrument: Olympus PCF H 190 L variable stiffness pediatric colonoscope Monitoring: Vital signs and clinical assessment, intermittent blood pressure monitoring, continuous EKG monitoring, Pulse oximetry and Carbon Dioxide monitoring were done throughout the procedure. Please see anesthesia flowsheet. Colon withdrawl time was 24 minutes. Procedure: The patient was placed in the left lateral decubitis position and pre-procedure medications were administered. After a digital rectal examination of the ano-rectum, the video colonoscope was inserted into the rectum and advanced through the colon to the cecum. The colonoscope was slowly withdrawn in a retrograde panoramic fashion and the colon mucosa was carefully examined including a retroflexed view of the rectum. Findings and interventions are described below. Procedure Difficulty: without difficulty Findings: Terminal Ileum: Not evaluated Cecum: Normal Ascending Colon: Normal Transverse Colon: Normal Descending Colon: Moderate diverticulosis Sigmoid Colon: A 4-5 mm sessile polyp - removed with a cold biopsy. Moderate diverticulosis Rectum: A 4-5 mm diminutive appearing polyp - removed with a cold biopsy Ano-rectum: Normal Colon preparation: Good after copious irrigation. [place] Bowel Preparation Scale Right colon; 2 Transverse colon: 2 Left colon; 2 (0 = Unprepared colon segment with mucosa not seen due to solid stool that cannot be cleared. 1 = Portion of mucosa of the colon segment seen, but other areas of the colon segment not well seen due to staining, residual stool and/or opaque liquid. 2 = Minor amount of residual staining, small fragments of stool and/or opaque liquid, but mucosa of colon segment seen well. 3 = Entire mucosa of colon segment seen well with no residual staining, small fragments of stool or opaque liquid) Impression and Post Procedure Diagnosis: Colonoscopy Findings: Two small polyps were removed Moderate diverticulosis seen in the left colon Plan: Pt has a FU appointment on 01/10/24 with Carolin House NP Repeat Colonoscopy in 5 years if polyps are adenomatous and 10 year if polyps are hyperplastic. Above findings were reviewed with the patient and relevant handouts were given and the discharge area. BIOPSIES SHOWED: A. Colon, sigmoid, polypectomy: Tubular adenoma; negative for high-grade dysplasia or carcinoma. B. Rectum, polypectomy: Colonic mucosa with prominent lymphoid aggregate.
[2023-12-27 13:38] VITALS: BP 120/69; PULSE 77; RESP 16; TEMP 36.8; O2SAT 98
[2023-12-27 13:53] VITALS: BP 125/68; PULSE 74; RESP 16; O2SAT 98
[2023-12-27 14:08] VITALS: BP 124/74; PULSE 76; RESP 16; TEMP 36.7; O2SAT 96
== END 2023-12-27 14:51 | disposition home or self-care (01) ==
PROVIDERS: PCP Internal Medicine; Visit Provider Internal Medicine Gastroenterology
PROC: 0DJD8ZZ Inspection of Lower Intestinal Tract, Via Natural or Artificial Opening Endoscopic (ICD-10-PCS; CPT 45378; principal; 2023-12-27 16:40)
DX: Z12.11 Encounter for screening for malignant neoplasm of colon (principal); D12.5 Benign neoplasm of sigmoid colon; K62.1 Rectal polyp; K57.30 Diverticulosis of large intestine without perforation or abscess without bleeding; Z79.899 Other long term (current) drug therapy; Z87.891 Personal history of nicotine dependence
CPT/HCPCS: 45380; 88305; J2704

== ENCOUNTER → 2023-12-27 11:44 | Outpatient (BNV) | payer OTHER, SELFPAY | PROVIDERS: PCP Internal Medicine; Visit Provider Internal Medicine Gastroenterology | DX: Z12.11 Encounter for screening for malignant neoplasm of colon (principal); K63.5 Polyp of colon; K57.90 Diverticulosis of intestine, part unspecified, without perforation or abscess without bleeding | CPT/HCPCS: 45380 ==

== ENCOUNTER → 2024-01-10 16:07 | Outpatient (BNVA) | payer OTHER, SELFPAY | PROVIDERS: PCP Internal Medicine; Visit Provider Nurse Practitioner Family ==

== ENCOUNTER → 2024-01-10 16:08 | Outpatient (AMB) | payer OTHER, SELFPAY ==
[2024-01-10 16:09] VITALS: BP 164/75; PULSE 89; BMI 43.1
--- NOTE | 2024-01-10 16:09 | MHC.OFFVIS ---
Vital Signs 01/10/24 16:09 Height 5 ft 2 in Weight 235 lb 14.314 oz BMI 43.1 BP 164/75 H Blood Pressure Location Rt brachial Position Sitting Pulse 89 Pulse Source Pulse Oximeter Intake Visit Reasons: S/P [place] screening: Dr Phan Intake Note: Pt presents to the office today for a s/p colo screening. Pt states she is feeling well and denies any GI concerns at this time. Allergies No Known Allergies Allergy (Verified 01/10/24 16:11) HPI HPI S/P [place] screening: Dr Phan: Details: LAST VISIT Screen for colon cancer Patient denies any GI, cardiac or respiratory symptoms.? Denies any issues with anesthesia in the past.? Denies any history of sleep apnea, however reports snoring when sleeping. Just recently patient had sleep study to rule out sleep apnea.? No history infectious diseases in the past or present.? Not on any anticoagulation therapy.? No family or personal history of colon cancer or polyps.? Patient denies melena, hematochezia, unintentional weight loss or ribbon like stools.? Discussed at length the pre-procedure,? prep, diet & medications as well as what to expect prior, during and after the procedure.?? Stressed the importance of good bowel prep. ?Recommended the use of Vaseline or Calmoseptine OTC & baby wipes with bowel movements to promote comfort.? ?Patient verbalizes understanding and agrees to plan of care.? She was given the opportunity to ask questions and all questions answered.? We will see her after the procedure.? Plan Medications New bisacodyl (Dulcolax (bisacodyl)) take 2 tabs at noon the day before your colonoscopy 10 mg (2 x 5 mg) PO ONCE 1 day 2 tabs 0RF Z12.11 polyethylene glycol 3350 (Miralax) As directed by gastroenterology department at [facility] 238 grams PO ONCE 238 grams 0RF Z12.11 COLONOSCOPY Findings: Terminal Ileum: Not evaluated Cecum: Normal Ascending Colon: Normal Transverse Colon: Normal Descending Colon: Moderate diverticulosis Sigmoid Colon: A 4-5 mm sessile polyp - removed with a cold biopsy. Moderate diverticulosis Rectum: A 4-5 mm diminutive appearing polyp - removed with a cold biopsy Ano-rectum: Normal Colon preparation: Good after copious irrigation. [place] Bowel Preparation Scale Right colon; 2 Transverse colon: 2 Left colon; 2 (0 = Unprepared colon segment with mucosa not seen due to solid stool that cannot be cleared. 1 = Portion of mucosa of the colon segment seen, but other areas of the colon segment not well seen due to staining, residual stool and/or opaque liquid. 2 = Minor amount of residual staining, small fragments of stool and/or opaque liquid, but mucosa of colon segment seen well. 3 = Entire mucosa of colon segment seen well with no residual staining, small fragments of stool or opaque liquid) Impression and Post Procedure Diagnosis: Colonoscopy Findings: Two small polyps were removed Moderate diverticulosis seen in the left colon Plan: Repeat Colonoscopy in 5 years if polyps are adenomatous and 10 year if polyps are hyperplastic. Above findings were reviewed with the patient and relevant handouts were given and the discharge area. BIOPSIES SHOWED: A. Colon, sigmoid, polypectomy: Tubular adenoma; negative for high-grade dysplasia or carcinoma. B. Rectum, polypectomy: Colonic mucosa with prominent lymphoid aggregate. TODAY'S VISIT Patient is here today for follow-up and to discuss colonoscopy results. One tubular adenoma found in sigmoid colon without high-grade dysplasia or carcinoma. Moderate diverticulosis of left side of the colon. Patient reports that she has been feeling well. Denies any ill effects from the prep, anesthesia or procedure itself. Patient reports that she has been feeling well. Denies any melena, hematochezia, unintentional weight loss or ribbon like stools [facility] Medical History (Updated 01/10/24 @ 20:31 by Bailey House YOUTH TEACHER-) Diverticulosis Annual physical exam Surgical History H/O [facility] Family History Father CVD (cardiovascular disease) CAD (coronary artery disease) Mother No problems noted. Social History Alcohol intake: current Alcohol intake frequency: holidays/special occasions only Patient Tobacco Use Status: Former Tobacco user e-Cigarette/Vaping Use: Never Used Cognitive needs: No Hearing needs: No Vision needs: No Review of Systems Const Denies weight gain and Denies weight loss ENT Reports no additional complaints, Denies dysphagia and Denies odynophagia Card Reports no additional complaints Resp Reports no additional complaints GI Denies abdominal pain, Denies belching, Denies melena, Denies bloating, Denies change in bowel habits, Denies dysphagia, Denies excessive flatus, Denies dyspepsia, Denies heartburn, Denies diarrhea, Denies loose stools, Denies nausea, Denies odynophagia and Denies vomiting Musc Reports no additional complaints Neuro Reports no additional complaints Psych Reports no additional complaints Endo Reports no additional complaints Physical Exam Vital Signs: Last Vital Signs Pulse 89 01/10/24 16:09 BP 164/75 H 01/10/24 16:09 BMI result Body Mass Index 43.1 Const General: healthy appearing and no acute distress Nutritional Appearance: obese Orientation/consciousness: patient oriented x3 Resp Effort & Inspection: normal respiratory effort, able to speak in complete sentences, no tracheal deviation and symmetric chest movement Auscultation: clear to auscultation bilaterally Cardio Rate: regular rate Heart sounds: S1 normal heart sound present and S2 normal heart sound present GI Inspection: Yes normal to inspection, No distended and Yes obesity Palpation (GI): Soft to palpation, not firm, nontender and No hepatosplenomegaly present Auscultation: normal bowel sounds General: Yes no CVA tenderness Back/Spine/Pelvis Back: no CVA tenderness Skin General skin exam: elasticity normal, turgor normal and dry skin Neuro General: patient oriented x3 Psych Appearance: grossly normal Mental Status: mental status grossly normal Assessment & Plan Assessment & Plan (1) Diverticulosis: Code(s): K57.90 - Diverticulosis of intestine, part unspecified, without perforation or abscess without bleeding Category: Medical (2) Status post colonoscopy: Code(s): Z98.890 - Other specified postprocedural states (3) Tubular adenoma of colon: Code(s): D12.6 - Benign neoplasm of colon, unspecified Plan One tubular adenoma found without high-grade dysplasia or carcinoma. Patient will return for colonoscopy screening in 5 years, sooner if clinically necessary. Patient was found to have moderate diverticulosis to left side of her colon. Patient will start taking fiber supplements as well as increasing fiber in her diet. Patient can also take probiotics. Patient denies any GI concerning symptoms and she will follow-up in our office on as needed basis. She is agreeable to this plan and verbalizes understanding of instructions. She was given the opportunity to ask questions and all questions answered. Thank you for allowing me to participate in her care
== END ==
PROVIDERS: PCP Internal Medicine; Visit Provider Nurse Practitioner Family
DX: K57.90 Diverticulosis of intestine, part unspecified, without perforation or abscess without bleeding (principal); Z98.890 Other specified postprocedural states; D12.6 Benign neoplasm of colon, unspecified
CPT/HCPCS: 99213

== ENCOUNTER 2024-01-20 13:40 | Outpatient (AMB) | payer OTHER, SELFPAY ==
[2024-01-20 13:45] VITALS: BMI 43.1
--- NOTE | 2024-01-20 13:45 | A.OFFVIS_ITS ---
VS Expanded 01/20/24 13:45 01/20/24 13:52 Height 5 ft 2 in 5 ft 2 in Weight 235 lb 14.314 oz 236 lb BMI 43.1 43.2 Intake Visit Reasons: Obesity, Hyperlipidemia Allergies No Known Allergies Allergy (Verified 01/10/24 16:11) Nutrition Presentation Details: Pt was referred by Dr. Bijan BRADY for obesity and hyperlipidemia Pt needs instructions on diet modifications. Pt reports walking : 1 mile 22 minutes daily (started a week ago) gradually incorporating physical activity BS Monitoring Most Recent Diabetes Results: Cholesterol 230 mg/dL (<200) H 12/04/23 HDL Cholesterol 53 mg/dL (>40) 12/04/23 Triglycerides 106 mg/dL (<150) 12/04/23 Creatinine 0.78 mg/dL (0.5-1.4) 12/04/23 Blood Urea Nitrogen 11 mg/dL (9-16) 12/04/23 Sodium 140 mmol/L (135-145) 12/04/23 Potassium 4.5 mmol/L (3.3-5.1) 12/04/23 Chloride 105 mmol/L (96-108) 12/04/23 Carbon Dioxide 27 mmol/L (22-29) 12/04/23 Calcium 9.8 mg/dL (8.4-10.2) 12/04/23 AST 21 U/L (5-31) 12/04/23 ALT 29 U/L (0-31) 12/04/23 Total Protein 7.2 g/dL (6.5-8.0) 12/04/23 Albumin 4.1 g/dL (3.5-5.0) 12/04/23 ZVM-Yeoddkj-Nn.Jeor Equation Height: 5 ft 2 in Weight: 236 lb Resting Metabolic Rate: 1641.74 Calculated Activity Level: Sedentary Calories Needed to Maintain Weight: 1970.09 Diagnosis Nutrition problem #1: excessive energy intake As related to (etiology) #1: diagnosis As evidenced by (sign/symptom) #1: knowledge deficit of diet [facility] Medical History (Updated 01/25/24 @ 11:39 by Elba Ramirez, RD, LDN) Diverticulosis Annual physical exam Surgical History H/O [facility] Family History Father CVD (cardiovascular disease) CAD (coronary artery disease) Mother No problems noted. Social History Alcohol intake: current Alcohol intake frequency: holidays/special occasions only Patient Tobacco Use Status: Former Tobacco user e-Cigarette/Vaping Use: Never Used Cognitive needs: No Hearing needs: No Vision needs: No Assessment & Plan Assessment & Plan (1) Obese: Comment: Pt also with hyperlipidemia Code(s): E66.9 - Obesity, unspecified Category: Medical Plan: Wt: 107 Kg ( 01/2024 ) Est kcal needs as per MSJ: 2000 (40% carb, 30% protein/fat) Est fluid needs as per 25-30 ml/d: 3200 Est prot per day as per 1 g/kg bw: 107 Recommend fiber intake : 8-10 g per day and gradually increase to 25-28 g per day for women and 35-38 g for men or as tolerated Recommend sodium intake per day : less than 2000 mg Educated patient on: ( R = reviewed V = verbalizes understanding N/R = needs review N/A = not applicable * Food sources of carbohydrate, adequate serving sizes and its role in various health conditions: R * Differences between complex carbohydrates a simple carbohydrates, role of fiber in diet: R V N/R * Lean protein sources of foods: R V NR * Differences between types of fats and role in diet (mono on saturated fat fatty acids, saturated fatty acids, trans fats): R * Food sources of sodium in salt and healthy modifications for heart health in kidney health: R V R/V * Vitamins and minerals: R V N/R * Healthy plate method concept: R * Physical activity: Benefits a precaution: R * Patient Instructions: Practice mindful eating and working on reducing on sugars by reducing on empty calorie snacks SEe 2000 navdeep meal plan low in fat Coding Level of Care Code Nutr Indiv Intake (58908) Diagnoses Obese E66.9 Time Spent (min) 30
[2024-01-25 11:42] VITALS: BMI 43.2
== END 2024-01-20 14:29 | disposition home or self-care (01) ==
PROVIDERS: PCP Internal Medicine; Visit Provider Dietitian, Registered
DX: E66.9 Obesity, unspecified (principal)

== ENCOUNTER → 2024-01-20 13:40 | Outpatient (BNVA) | payer OTHER, SELFPAY | PROVIDERS: PCP Internal Medicine; Visit Provider Dietitian, Registered | DX: E66.9 Obesity, unspecified (principal); Z68.41 Body mass index [BMI] 40.0-44.9, adult; Z71.3 Dietary counseling and surveillance | CPT/HCPCS: 97802 ==

== ENCOUNTER 2024-03-13 13:47 | Outpatient (AMB) | payer OTHER, SELFPAY ==
--- NOTE | 2024-03-13 13:55 | A.OFFVIS_ITS ---
VS Expanded 03/13/24 13:56 Height 5 ft 2 in Weight 231 lb 7.766 oz BMI 42.3 Intake Visit Reasons: Obesity, hyperlipidemia/LVM Allergies No Known Allergies Allergy (Verified 01/10/24 16:11) Nutrition Presentation Details: Pt presents for MNT f/u for obesity. Pt reports working on diet modifications, reducing on empty calorie snacks Reports keeping physically active, continuing walks in AM Reports feeling well, motivated BS Monitoring Most Recent Diabetes Results: Cholesterol 230 mg/dL (<200) H 12/04/23 HDL Cholesterol 53 mg/dL (>40) 12/04/23 Triglycerides 106 mg/dL (<150) 12/04/23 Creatinine 0.78 mg/dL (0.5-1.4) 12/04/23 Blood Urea Nitrogen 11 mg/dL (9-16) 12/04/23 Sodium 140 mmol/L (135-145) 12/04/23 Potassium 4.5 mmol/L (3.3-5.1) 12/04/23 Chloride 105 mmol/L (96-108) 12/04/23 Carbon Dioxide 27 mmol/L (22-29) 12/04/23 Calcium 9.8 mg/dL (8.4-10.2) 12/04/23 AST 21 U/L (5-31) 12/04/23 ALT 29 U/L (0-31) 12/04/23 Total Protein 7.2 g/dL (6.5-8.0) 12/04/23 Albumin 4.1 g/dL (3.5-5.0) 12/04/23 [facility] Medical History (Updated 01/25/24 @ 11:[address], LDN) Diverticulosis Annual physical exam Surgical History H/O [facility]EEP Family History Father CVD (cardiovascular disease) CAD (coronary artery disease) Mother No problems noted. Social History Alcohol intake: current Alcohol intake frequency: holidays/special occasions only Patient Tobacco Use Status: Former Tobacco user e-Cigarette/Vaping Use: Never Used Cognitive needs: No Hearing needs: No Vision needs: No Assessment & Plan Assessment & Plan (1) Obese: Comment: Pt also with hyperlipidemia Code(s): E66.9 - Obesity, unspecified Category: Medical Plan: Wt: 107 Kg ( 01/2024 ) 105 kg (02/2024) Est kcal needs as per MSJ: 2000 (40% carb, 30% protein/fat) Est fluid needs as per 25-30 ml/d: 3200 Est prot per day as per 1 g/kg bw: 107 Recommend fiber intake : 8-10 g per day and gradually increase to 25-28 g per day for women and 35-38 g for men or as tolerated Recommend sodium intake per day : less than 2000 mg Educated patient on: ( R = reviewed V = verbalizes understanding N/R = needs review N/A = not applicable * Food sources of carbohydrate, adequate serving sizes and its role in various health conditions: R * Differences between complex carbohydrates a simple carbohydrates, role of fiber in diet: R V N/R * Lean protein sources of foods: R * Differences between types of fats and role in diet (mono on saturated fat fatty acids, saturated fatty acids, trans fats): R * Food sources of sodium in salt and healthy modifications for heart health in kidney health: R V R/V * Vitamins and minerals: R V N/R * Healthy plate method concept: R * Physical activity: Benefits a precaution: R * Patient Instructions: Continue working on mindful eating strategies , reducing on sugars/empty calorie snacks include fiber rich foods as snack (carrots/peppers, see list of fiber rich snack choices) Coding Level of Care Code Nutr Indiv Subseq (73881) Diagnoses Obese E66.9 Time Spent (min) 30
[2024-03-13 13:56] VITALS: BMI 42.3
== END 2024-03-13 14:17 | disposition home or self-care (01) ==
PROVIDERS: PCP Internal Medicine; Visit Provider Dietitian, Registered
DX: E66.9 Obesity, unspecified (principal)

== ENCOUNTER → 2024-03-13 13:47 | Outpatient (BNVA) | payer OTHER, SELFPAY | PROVIDERS: PCP Internal Medicine; Visit Provider Dietitian, Registered | DX: E66.9 Obesity, unspecified (principal); Z68.41 Body mass index [BMI] 40.0-44.9, adult; E78.5 Hyperlipidemia, unspecified; Z71.3 Dietary counseling and surveillance | CPT/HCPCS: 97803 ==

== ENCOUNTER 2024-05-25 13:48 | Outpatient (AMB) | payer OTHER, SELFPAY ==
[2024-05-25 13:59] VITALS: BP 120/66; PULSE 89; O2SAT 97; BMI 42.1
--- NOTE | 2024-05-25 13:59 | MHC.PC.OV ---
Vital Signs 05/25/24 13:59 Height 5 ft 2 in Weight 230 lb BMI 42.1 BP 120/66 Blood Pressure Location Rt brachial Position Sitting Pulse 89 Pulse Source Pulse Oximeter Pulse Oximetry (%) 97 Oxygen Delivery Method Room Air Intake Visit Reasons: 6 month fu Intake Note: Pt is here today for 6 months follow up visit. Allergies No Known Allergies Allergy (Verified 05/25/24 14:01) Medication List - Last Reconciled 05/25/24 by Franci Thakkar MD acetaminophen ER (Tylenol Arthritis Pain) 1,300 mg PO Q8H cholecalciferol (vitamin D3) 25 mcg PO DAILY lactobacillus combination no.9 (Adult 50 Plus Probiotic) PO multivitamin with iron (Daily Vitamin with Iron) PO psyllium husk (Daily Fiber) PO Tobacco use date assessed: 05/25/24 Dental Screening Dental Screen Date: 05/25/24 Did you have a dental visit in the last 12 months?: Yes Did you have a dental problem in the last 6 months where you did not have access to dental care?: No Was dental information given to patient?: Patient has dentist HPI 6 month fu HPI Details Patient presents for the follow-up of obesity. 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 Patient is interested in trying weight loss medication. [facility] Medical History (Updated 05/25/24 @ 14:58 by Franci Thakkar MD) Diverticulosis Annual physical exam Surgical History H/O LEEP Family History Father CVD (cardiovascular disease) CAD (coronary artery disease) Mother No problems noted. Social History Housing: House Alcohol intake: current Alcohol intake frequency: holidays/special occasions only Patient Tobacco Use Status: Former Tobacco user e-Cigarette/Vaping Use: Never Used service: No Current occupational status: employed Cognitive needs: No Hearing needs: No Vision needs: No Questionnaire PHQ-9 Over the last 2 weeks, how often have you been bothered by any of the following problems? 1. Little interest or pleasure in doing things: not at all 2. Feeling down, depressed, or hopeless: not at all 3. Trouble falling or staying asleep, or sleeping too much: several days 4. Feeling tired or having little energy: several days 5. Poor appetite or overeating: several days 6. Feeling bad about yourself - or that you are a failure or have let yourself or your family down: not at all 7. Trouble concentrating on things, such as reading the newspaper or watching television: not at all 8. Moving or speaking so slowly that other people could have noticed. Or the opposite - being so fidgety or restless that you have been moving around a lot more than usual: not at all 9. Thoughts that you would be better off or of hurting yourself in some way: not at all Total score: 3 Depression Screening Interpretation: Negative Depression Screening Done: Yes 04310 - PHQ-9 Billing: Yes Source: Developed by Drs. Michael Espino, Germania Marte, Vince Guerrier and colleagues, with an educational sergey from [employer]. Thrive Questionnaire Date Thrive assessed: 12/09/23 I am a: Patient What is your living situation today?: I have a steady place to live Within the past 12 months, did the food you bought not last and you didn't have the money to get more?: Never true Within the past 12 months, did you worry whether your food would run out before you got money to buy more?: Never true Do you have trouble paying for medicines?: No Do you have trouble getting transportation to medical appointments?: No Do you have trouble paying your heating and electricity bill?: No Do you have trouble taking care of your child, family member or friend?: No Do you have trouble with day-to-day activities such as bathing, preparing meals, shopping, managing finances, etc.?: No Are you currently unemployed and looking for a job?: No Are you interested in more education?: No Please select the resources that you would like help with: None Currently or been in a relationship where the following occur: No concerns reported THRIVE Score: 0 AUDIT C Alcohol Use Questionnaire (AUDIT-C) 1. How often do you have a drink containing alcohol?: Monthly or less 2. How many drinks containing alcohol do you have on a typical day when you are drinking?: 3 or 4 3. How often do you have six or more drinks on one occasion?: Never Total Score: 2 RUBEN-7 AMB Questionnaire RUBEN-7 Date RUBEN - 7 assessed: 12/09/23 Feeling nervous, anxious, or on edge: 0 = Not at all Not being able to stop or control worryin = Not at all Worrying too much about different things: 0 = Not at all Trouble relaxin = Not at all Being so restless that it is hard to sit still: 0 = Not at all Becoming easily annoyed or irritable: 0 = Not at all Feeling afraid as if something awful might happen: 0 = Not at all Total RUBEN-7 score (0-4 normal; 5-9 mild; 10-14 moderate; 15-21 severe): 0 Source: Developed by Drs. Michael Espino, Germania Marte, Vince Guerrier and colleagues, with an educational sergey from [employer]. Review of Systems Const All systems reviewed & are unremarkable except as noted in HPI and below Card Reports no additional complaints Resp Reports no additional complaints GI Reports no additional complaints Physical exam (Primary Care) Vital Signs: Last Vital Signs Pulse 89 05/25/24 13:59 BP 120/66 05/25/24 13:59 Pulse Ox 97 05/25/24 13:59 Oxygen Delivery Method Room Air 05/25/24 13:59 BMI result Body Mass Index 42.1 Tobacco/Smoking Status: Tobacco use Status Tobacco use date assessed 05/25/24 05/25/24 14:06 Patient Tobacco Use Status Former Tobacco user 05/25/24 14:06 e-Cigarette/Vaping Use Never Used 05/25/24 14:06 PHQ-9: PHQ-9 Score PHQ-9: Total score 3 05/25/24 14:06 Depression Screening Interpretation: Negative Thrive Assessment: Date of Thrive Assessment Date Thrive assessed 12/09/23 05/25/24 14:06 Currently or been in a relationship where the following occur: No concerns reported Const General: no acute distress Eyes General: appearance normal, both eyes and all related structures Resp Auscultation: clear to auscultation bilaterally Cardio Rhythm: regular rhythm Heart sounds: S1 normal heart sound present and S2 normal heart sound present GI Inspection: Yes normal to inspection Assessment and Plan Assessment & Plan (1) BMI 40.0-44.9, adult: Code(s): Z68.41 - Body mass index [BMI] 40.0-44.9, adult Plan: CONTINUE DECREASING CALORIC INTAKE INCREASING PHYSICAL ACTIVITY DISCUSSED WITH THE PATIENT. Wegovy will be tried patient will follow-up to monitor her weight loss (2) Hyperlipidemia: Code(s): E78.5 - Hyperlipidemia, unspecified Plan: Low-cholesterol diet increase physical activity discussed with the patient. Return for physical in 6 months with a fasting labs before Orders: Orders Comprehensive [place]. Panel Fast 6 Months E78.5 - Hyperlipidemia, unspecified, Z68.41 - Body mass index [BMI] 40.0-44.9, adult Complete Blood Count Auto Diff 6 Months E78.5 - Hyperlipidemia, unspecified, Z68.41 - Body mass index [BMI] 40.0-44.9, adult Lipid Panel 6 Months E78.5 - Hyperlipidemia, unspecified, Z68.41 - Body mass index [BMI] 40.0-44.9, adult TSH reflex Free T4 6 Months E78.5 - Hyperlipidemia, unspecified, Z68.41 - Body mass index [BMI] 40.0-44.9, adult Medications: New Wegovy (semaglutide (weight loss)) administer weeks 1 through 4 of therapy, then increase to 0.5 mg weekly 0.25 mg (0.5 mL) subcut QWEEK 6 mL 2RF NS Coding Level of Care Code Est Pt Level 3 (04898) Diagnoses BMI 40.0-44.9, adult Z68.41 Hyperlipidemia E78.5
== END 2024-05-25 14:53 | disposition home or self-care (01) ==
PROVIDERS: PCP Internal Medicine; Visit Provider Internal Medicine
DX: E66.9 Obesity, unspecified (principal); Z68.41 Body mass index [BMI] 40.0-44.9, adult; E78.5 Hyperlipidemia, unspecified
CPT/HCPCS: 99213

== ENCOUNTER 2024-06-10 06:31 | Outpatient (REF) | payer OTHER, SELFPAY ==
[2024-06-10 11:00] LABS: Appearance Urine Clear; Color Urine Yellow; Glucose Urine UA Negative (Negative); Leukocyte Esterase Urine Negative (Negative); Nitrite Urine Negative (Negative); PH 7.5 (5.0-9.0); Specific Gravity - Urine 1.015 (1.005-1.025); Urine Blood Negative (Negative); Urine Ketones Negative (Negative); Urine Protein Negative (Neg-Trace)
[2024-06-10 11:04] LABS: Bacteria Urine None Seen (None Seen); Hyaline Casts Urine 0-2 /LPF (0-2); RBC Urine 0-2 /HPF (0-2); WBC Urine 0-5 /HPF (0-5)
[2024-06-10 11:21] LABS: MANUAL DIFF FLAG NO
[2024-06-10 11:30] LABS: Basophils Percent Auto 0.4 % (0-2); Eosinophils Absolute Auto 0.1 X10*3/uL (0.0-0.4); Hematocrit 41.1 % (37.0-47.0); Hemoglobin 13.3 g/dl (12.0-16.0); Imm Gran Abs Auto 0.02 X10*3/uL (0.00-0.03); Imm Gran Pct Auto 0.3 % (0.0-0.4); Lymphocytes Absolute Auto 1.6 X10*3/uL (1.2-4.9); Lymphocytes Percent Auto 23.1 % (20-40); Mean Corpuscular HGB Conc 32.4 g/dl (31.0-35.0); Mean Corpuscular Hemoglobin 26.8 pg (27.0-33.0); Mean Corpuscular Volume 82.7 fL (80.0-98.0); Mean Platelet Volume 11.7 fL (9.4-12.3); Monocytes Absolute Auto 0.5 X10*3/uL (0.1-1.2); Monocytes Percent Auto 7.1 % (2-11); Neutrophils Absolute Auto 4.6 x10*3/uL (2.0-8.3); Neutrophils Percent Auto 67.1 % (45-73); Platelet Count 277 X10*3/uL (160-400); Red Blood Count 4.97 X10*6/uL (4.20-5.50); Red Cell Distribution Width 13.5 % (11.0-16.0); White Blood Count 6.9 X10*3/uL (4.8-10.8)
[2024-06-10 11:58] LABS: Alanine Aminotransferase 30 U/L (0-31); Albumin Level 4.2 g/dL (3.5-5.0); Alkaline Phosphatase 86 U/L (39-117); Anion Gap 12 (12-20); Aspartate Amino Transferase 21 U/L (5-31); Bilirubin Total 0.4 mg/dL (0.0-1.0); Blood Urea Nitrogen 11 mg/dL (9-16); Calcium 9.7 mg/dL (8.4-10.2); Carbon Dioxide 28 mmol/L (22-29); Chloride 104 mmol/L (96-108); Cholesterol 214 mg/dL (<200); Estimated Glomerular Filt Rate > 60; Glucose Fasting 106 mg/dL (60-99); HDL Cholesterol 52 mg/dL (>40); LDL Cholesterol Calculated 144 mg/dL (<100); Potassium 4.1 mmol/L (3.3-5.1); Sodium 140 mmol/L (135-145); Total Protein 7.4 g/dL (6.5-8.0); Triglycerides 94 mg/dL (<150)
[2024-06-10 12:03] LABS: TSH reflex Free T4 3.12 uIU/mL (0.32-4.0); Vitamin D 25-OH Total 41.1 ng/mL (>30)
== END 2024-06-10 06:32 | disposition home or self-care (01) ==
LOC: HO.HMGCLDS 06:31
PROVIDERS: PCP Internal Medicine; Visit Provider Internal Medicine
DX: E78.5 Hyperlipidemia, unspecified (principal); E66.9 Obesity, unspecified; E55.9 Vitamin D deficiency, unspecified
CPT/HCPCS: 36415; 80053; 80061; 81001; 82306; 84443; 85025

== ENCOUNTER 2024-06-14 12:45 | Outpatient (AMB) | payer OTHER, SELFPAY ==
--- NOTE | 2024-06-14 13:08 | MHC.PC.OV ---
Vital Signs 06/14/24 13:23 Height 5 ft 2 in Weight 229 lb BMI 41.9 BP 108/68 Blood Pressure Location Rt brachial Position Sitting Pulse 85 Pulse Source Pulse Oximeter Pulse Oximetry (%) 97 Oxygen Delivery Method Room Air Intake Visit Reasons: PE Intake Note: Pt is here today for a PE. Allergies No Known Allergies Allergy (Verified 06/14/24 13:24) Medication List - Last Reconciled 06/14/24 by Franci Thakkar MD acetaminophen ER (Tylenol Arthritis Pain) 1,300 mg PO Q8H cholecalciferol (vitamin D3) 25 mcg PO DAILY lactobacillus combination no.9 (Adult 50 Plus Probiotic) PO multivitamin with iron (Daily Vitamin with Iron) PO psyllium husk (Daily Fiber) PO Tobacco use date assessed: 06/14/24 Dental Screening Dental Screen Date: 05/25/24 HPI PE HPI Details Patient presents for physical PFSH Medical History (Updated 06/14/24 @ 13:56 by Franci Thakkar MD) Diverticulosis Annual physical exam Surgical History (Updated 06/14/24 @ 13:54 by Franci Thakkar MD) H/O LEEP Family History Father CVD (cardiovascular disease) CAD (coronary artery disease) Mother No problems noted. Social History Housing: House Alcohol intake: current Alcohol intake frequency: holidays/special occasions only Patient Tobacco Use Status: Former Tobacco user e-Cigarette/Vaping Use: Never Used service: No Current occupational status: employed Cognitive needs: No Hearing needs: No Vision needs: No Questionnaire Thrive Questionnaire Date Thrive assessed: 06/14/24 I am a: Patient What is your living situation today?: I have a steady place to live Within the past 12 months, did the food you bought not last and you didn't have the money to get more?: Never true Within the past 12 months, did you worry whether your food would run out before you got money to buy more?: Never true Do you have trouble paying for medicines?: No Do you have trouble getting transportation to medical appointments?: No Do you have trouble paying your heating and electricity bill?: No Do you have trouble taking care of your child, family member or friend?: No Do you have trouble with day-to-day activities such as bathing, preparing meals, shopping, managing finances, etc.?: No Are you currently unemployed and looking for a job?: No Are you interested in more education?: No Please select the resources that you would like help with: None Currently or been in a relationship where the following occur: No concerns reported THRIVE Score: 0 AUDIT C Alcohol Use Questionnaire (AUDIT-C) 1. How often do you have a drink containing alcohol?: Never 3. How often do you have six or more drinks on one occasion?: Never Total Score: 0 RUBEN-7 AMB Questionnaire RUBEN-7 Date RUBEN - 7 assessed: 06/14/24 Feeling nervous, anxious, or on edge: 0 = Not at all Not being able to stop or control worryin = Not at all Worrying too much about different things: 0 = Not at all Trouble relaxin = Not at all Being so restless that it is hard to sit still: 0 = Not at all Becoming easily annoyed or irritable: 0 = Not at all Feeling afraid as if something awful might happen: 0 = Not at all Total RUBEN-7 score (0-4 normal; 5-9 mild; 10-14 moderate; 15-21 severe): 0 Source: Developed by Drs. Michael Espino, Germania Marte, Vince Guerrier and colleagues, with an educational sergey from [employer]. RUBEN-7 Assessment Billing RUBEN-7 Assessment Tool: RUBEN-7 Assessment 63207 Review of Systems Const All systems reviewed & are unremarkable except as noted in HPI and below Reports no additional complaints Eyes Reports no additional complaints ENT Reports no additional complaints Card Reports no additional complaints Resp Reports no additional complaints GI Reports no additional complaints Reports no additional complaints Physical exam (Primary Care) Vital Signs: Last Vital Signs Pulse 85 06/14/24 13:23 BP 108/68 06/14/24 13:23 Pulse Ox 97 06/14/24 13:23 Oxygen Delivery Method Room Air 06/14/24 13:23 BMI result Body Mass Index 41.9 Tobacco/Smoking Status: Tobacco use Status Tobacco use date assessed 06/14/24 06/14/24 13:27 Patient Tobacco Use Status Former Tobacco user 06/14/24 13:08 e-Cigarette/Vaping Use Never Used 06/14/24 13:08 Thrive Assessment: Date of Thrive Assessment Date Thrive assessed 06/14/24 06/14/24 13:27 Currently or been in a relationship where the following occur: No concerns reported Const General: no acute distress HENMT Head: Yes normal to inspection Ears: hearing grossly normal bilaterally Mouth: Normal oral and palatal mucosa present Eyes General: appearance normal, both eyes and all related structures Neck Neck: Yes supple Resp Effort & Inspection: normal respiratory effort Auscultation: clear to auscultation bilaterally Cardio Rhythm: regular rhythm Heart sounds: S1 normal heart sound present and S2 normal heart sound present GI Inspection: Yes normal to inspection Palpation (GI): Soft to palpation Percussion: Yes normal to percussion Auscultation: normal bowel sounds Assessment and Plan Assessment & Plan (1) Hx of colonoscopy: Comment: 12/2023 1 polyp TA, repeat [address] Phan Code(s): Z98.890 - Other specified postprocedural states (2) BMI 40.0-44.9, adult: Comment: Insurance declined [facility] Code(s): Z68.41 - Body mass index [BMI] 40.0-44.9, adult Plan: Continue decrease caloric intake increase physical activity weight loss discussed with the patient (3) Hyperlipidemia: Code(s): E78.5 - Hyperlipidemia, unspecified Plan: Continue low-cholesterol diet (4) Annual physical exam: Comment: NEGATIVE PAP SMEAR 01/2021 Code(s): Z00.00 - Encounter for general adult medical examination without abnormal findings Plan: Well-balanced diet regular exercise weight loss discussed with the patient. She is up-to-date with the Pap smear mammogram by journeyman lineman and had colonoscopy in December Orders: Orders Lipid Panel 1 Year E78.5 - Hyperlipidemia, unspecified, Z00.00 - Encounter for general adult medical examination without abnormal findings, Z68.41 - Body mass index [BMI] 40.0-44.9, adult UA w Microscopic 1 Year E78.5 - Hyperlipidemia, unspecified, Z00.00 - Encounter for general adult medical examination without abnormal findings, Z68.41 - Body mass index [BMI] 40.0-44.9, adult Comprehensive Gilbert. Panel Fast 1 Year E78.5 - Hyperlipidemia, unspecified, Z00.00 - Encounter for general adult medical examination without abnormal findings, Z68.41 - Body mass index [BMI] 40.0-44.9, adult Complete Blood Count Auto Diff 1 Year E78.5 - Hyperlipidemia, unspecified, Z00.00 - Encounter for general adult medical examination without abnormal findings, Z68.41 - Body mass index [BMI] 40.0-44.9, adult TSH reflex Free T4 1 Year E78.5 - Hyperlipidemia, unspecified, Z00.00 - Encounter for general adult medical examination without abnormal findings, Z68.41 - Body mass index [BMI] 40.0-44.9, adult Vitamin D 25-OH Total 1 Year E78.5 - Hyperlipidemia, unspecified, Z00.00 - Encounter for general adult medical examination without abnormal findings, Z68.41 - Body mass index [BMI] 40.0-44.9, adult Coding Level of Care Code Est Pt Prev Care 40-64y(64908) Diagnoses Hx of colonoscopy Z98.890 BMI 40.0-44.9, adult Z68.41 Hyperlipidemia E78.5 Annual physical exam Z00.00 Additional Codes RUBEN-7 Assessment Billing - RUBEN-7 Assessment Tool: RUBEN-7 Assessment 29067 ([id number])
[2024-06-14 13:23] VITALS: BP 108/68; PULSE 85; O2SAT 97; BMI 41.9
== END 2024-06-14 13:52 | disposition home or self-care (01) ==
PROVIDERS: PCP Internal Medicine; Visit Provider Internal Medicine
DX: Z98.890 Other specified postprocedural states (principal); Z68.41 Body mass index [BMI] 40.0-44.9, adult; E78.5 Hyperlipidemia, unspecified; Z00.00 Encounter for general adult medical examination without abnormal findings

== ENCOUNTER → 2024-06-14 12:45 | Outpatient (BNVA) | payer OTHER, SELFPAY | PROVIDERS: PCP Internal Medicine; Visit Provider Internal Medicine | DX: Z00.00 Encounter for general adult medical examination without abnormal findings (principal); E78.5 Hyperlipidemia, unspecified; Z86.010 Personal history of colon polyps | CPT/HCPCS: 96127 ==

== ENCOUNTER 2024-12-04 13:33 | Outpatient (AMB) | payer OTHER, SELFPAY ==
[2024-12-04 13:37] VITALS: BP 110/68; PULSE 86; RESP 20; TEMP 36.9; O2SAT 95; BMI 43.0
--- NOTE | 2024-12-04 13:37 | MHC.PC.OV ---
Vital Signs 12/04/24 13:37 Height 5 ft 2 in Weight 235 lb BMI 43.0 BP 110/68 Blood Pressure Location Lt brachial Position Sitting Respiration 20 Pulse 86 Pulse Source Pulse Oximeter Temp 98.4 F Temp Source Oral Pulse Oximetry (%) 95 Oxygen Delivery Method Room Air Intake Visit Reasons: 6 months f/up Intake Note: Pt is here today for 6 months follow up visit. Allergies No Known Allergies Allergy (Verified 12/04/24 13:46) Medication List - Last Reconciled 12/04/24 by Franci Thakkar MD acetaminophen ER (Tylenol Arthritis Pain) 1,300 mg PO Q8H cholecalciferol (vitamin D3) 25 mcg PO DAILY lactobacillus combination no.9 (Adult 50 Plus Probiotic) PO multivitamin with iron (Daily Vitamin with Iron) PO psyllium husk (Daily Fiber) PO Tobacco use date assessed: 12/04/24 Dental Screening Dental Screen Date: 12/04/24 Did you have a dental visit in the last 12 months?: Yes Did you have a dental problem in the last 6 months where you did not have access to dental care?: No Was dental information given to patient?: Patient has dentist HPI 6 months f/up HPI Details Pt presents for f/u hyperlipid, diet controlled. Patient has been exercising regularly decreasing caloric intake and is planning to start Wegovy obtained through the company on line because her health insurance does not cover GLP 1 agonist for weight loss PFSH Medical History (Updated 12/04/24 @ 15:30 by Franci Thakkar MD) Hyperlipidemia Diverticulosis Annual physical exam Surgical History H/O LEEP Family History Father CVD (cardiovascular disease) CAD (coronary artery disease) Mother No problems noted. Social History Housing: House Alcohol intake: current Alcohol intake frequency: holidays/special occasions only Patient Tobacco Use Status: Former Tobacco user e-Cigarette/Vaping Use: Never Used service: No Current occupational status: employed Cognitive needs: No Hearing needs: No Vision needs: No Questionnaire PHQ-9 Over the last 2 weeks, how often have you been bothered by any of the following problems? 1. Little interest or pleasure in doing things: not at all 2. Feeling down, depressed, or hopeless: not at all 3. Trouble falling or staying asleep, or sleeping too much: not at all 4. Feeling tired or having little energy: not at all 5. Poor appetite or overeating: not at all 6. Feeling bad about yourself - or that you are a failure or have let yourself or your family down: not at all 7. Trouble concentrating on things, such as reading the newspaper or watching television: not at all 8. Moving or speaking so slowly that other people could have noticed. Or the opposite - being so fidgety or restless that you have been moving around a lot more than usual: not at all 9. Thoughts that you would be better off or of hurting yourself in some way: not at all Total score: 0 Depression Screening Interpretation: Negative Depression Screening Done: Yes 37268 - PHQ-9 Billing: Yes Source: Developed by Drs. Michael Espino, Germania Marte, Vince Guerrier and colleagues, with an educational sergey from [employer]. Thrive Questionnaire Date Thrive assessed: 12/04/24 I am a: Patient What is your living situation today?: I have a steady place to live Within the past 12 months, did the food you bought not last and you didn't have the money to get more?: Never true Within the past 12 months, did you worry whether your food would run out before you got money to buy more?: Never true Do you have trouble paying for medicines?: No Do you have trouble getting transportation to medical appointments?: No Do you have trouble paying your heating and electricity bill?: No Do you have trouble taking care of your child, family member or friend?: No Do you have trouble with day-to-day activities such as bathing, preparing meals, shopping, managing finances, etc.?: No Are you currently unemployed and looking for a job?: No Are you interested in more education?: No Please select the resources that you would like help with: None Currently or been in a relationship where the following occur: No concerns reported THRIVE Score: 0 AUDIT C Alcohol Use Questionnaire (AUDIT-C) 1. How often do you have a drink containing alcohol?: Monthly or less 2. How many drinks containing alcohol do you have on a typical day when you are drinking?: 3 or 4 3. How often do you have six or more drinks on one occasion?: Never Total Score: 2 RUBEN-7 AMB Questionnaire RUBEN-7 Date RUBEN - 7 assessed: 12/04/24 Feeling nervous, anxious, or on edge: 0 = Not at all Not being able to stop or control worryin = Not at all Worrying too much about different things: 0 = Not at all Trouble relaxin = Not at all Being so restless that it is hard to sit still: 0 = Not at all Becoming easily annoyed or irritable: 0 = Not at all Feeling afraid as if something awful might happen: 0 = Not at all Total RUBEN-7 score (0-4 normal; 5-9 mild; 10-14 moderate; 15-21 severe): 0 Source: Developed by Drs. Michael Espino, Germania Marte, Vince Guerrier and colleagues, with an educational sergey from [employer]. RUBEN-7 Assessment Billing RUBEN-7 Assessment Tool: RUBEN-7 Assessment 00517 Review of Systems Const All systems reviewed & are unremarkable except as noted in HPI and below Eyes Reports no additional complaints ENT Reports no additional complaints Card Reports no additional complaints Resp Reports no additional complaints GI Reports no additional complaints Reports no additional complaints Physical exam (Primary Care) Vital Signs: Last Vital Signs Temp 98.4 F 12/04/24 13:37 Pulse 86 12/04/24 13:37 Resp 20 12/04/24 13:37 BP 110/68 12/04/24 13:37 Pulse Ox 95 12/04/24 13:37 Oxygen Delivery Method Room Air 12/04/24 13:37 BMI result Body Mass Index 43.0 Tobacco/Smoking Status: Tobacco use Status Tobacco use date assessed 12/04/24 12/04/24 13:52 Patient Tobacco Use Status Former Tobacco user 12/04/24 13:37 e-Cigarette/Vaping Use Never Used 12/04/24 13:37 PHQ-9: PHQ-9 Score PHQ-9: Total score 0 12/04/24 13:52 Depression Screening Interpretation: Negative Thrive Assessment: Date of Thrive Assessment Date Thrive assessed 12/04/24 12/04/24 13:52 Currently or been in a relationship where the following occur: No concerns reported Const General: no acute distress HENMT Head: Yes normal to inspection Face and sinus: Yes normal facial exam Mouth: Normal oral and palatal mucosa present Throat: Yes posterior oropharynx normal Eyes General: appearance normal, both eyes and all related structures Neck Neck: Yes no lymphadenopathy and Yes supple Resp Effort & Inspection: normal respiratory effort Auscultation: clear to auscultation bilaterally Cardio Rhythm: regular rhythm Heart sounds: S1 normal heart sound present and S2 normal heart sound present GI Inspection: Yes normal to inspection Palpation (GI): Soft to palpation Percussion: Yes normal to percussion Auscultation: normal bowel sounds Coding Level of Care Code Est Pt Level 3 (54845) Diagnoses BMI 40.0-44.9, adult Z68.41 Hyperlipidemia E78.5 Additional Codes RUBEN-7 Assessment Billing - RUBEN-7 Assessment Tool: RUBEN-7 Assessment 85036 ([id number]) PHQ-9 - 54022 - PHQ-9 Billing: Yes ([id number]) Assessment & Plan Assessment & Plan (1) BMI 40.0-44.9, adult: Comment: Insurance declined Wegovy Code(s): Z68.41 - Body mass index [BMI] 40.0-44.9, adult Category: Medical Plan: Continue decreasing caloric intake increasing physical activity discussed with the patient she will try Wegovy (2) Hyperlipidemia: Code(s): E78.5 - Hyperlipidemia, unspecified Category: Medical Plan: Low-cholesterol diet discussed with the patient , she will return for physical with a fasting labs before
--- OUTSIDE RECORDS SUMMARY | 2024-12-04 15:49 | XMS_ITS | Patient Health Record ---
Author Organization [facility] Address [address] [place] [address] Care Team Providers Care Electronics Instructor Name Role Phone Franci Thakkar MD Primary Care Provider UnavailHector Pearson Unavailable [phone] Nuno Suarez Unavailable [phone] Allergies No Known Allergies Reason For Referral No Information Medications Medication SIG (Take, Route, Frequency, Duration) Notes Start Date End Date Status Vitamin D Active Tylenol Arthritis Pain Active Ferrous Sulfate 325 (65 Fe) MG 1 tablet Orally Three times a Week Active LFT . . . . for . Not-Taki ng LamISIL 250 MG 1 tablet Orally Once a day for 30 days 04/26/2023 Not-Taking Ciclopirox 0.77 % 1 application to affected area Externally Twice a day for 365 days Not-El ing Diclofenac Sodium 75 MG 1 tablet with fo od Orally Twice a day for 30 days 09/05/2024 Active Social History Tobacco Use: Social History Observation Description Date Details (start date - stop date) Former Smoker NA - NA Tobacco use other than smoking: Question Answer Notes Are you an other tobacco user? No Tobacco Control (Standard) Question Answer Notes Tobacco use: Former smoker Additional Findings: Tobacco non-user Ex-cigaret te smoker AUDIT-C (Standard) Question Answer Notes Did you have a drink containing alcohol in the p ast year? 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 [address] [place] [address] 12/06/2023 Nuno Suarez Tinea unguium B35.1 ; Pain in right toe(s) M79.674 and Pain in left toe(s) M79.[address] [address] 09/05/2024 Hector Del Castillo Pain in right foot M79.671 ; Plantar fasciitis of right foot M72.2 and Calcaneal spur, right foot M77.[address] [address] 09/26/2024 Hector Del Castillo Calcaneal spur, right foot M77.31 ; Plantar fasciitis, right M72.2 and Right foot pain M79.[address] [address] 09/14/2024 Hector Del Castillo Assessments Encounter Date Diagnosis (ICD Code) Assessment Notes Treatment Notes Treatment Clinical Notes Section Notes 12/06/2023 Tinea unguium (ICD-10 - B35.1) Response to treatment - Improvement 12/06/2023 Pain in right toe(s) (ICD-10 - M79.674) 09/05/2024 Pain in right foot (ICD-10 - M79.671) 09/05/2024 Plantar fasciitis of right foot (ICD-10 - M72.2) Patient Educated with: HEEL CORD STRETCHES.pdf (HEEL CORD STRETCHES.pdf) Patient Educated with: RICE THERAPY.pdf (RICE THERAPY.pdf) 09/26/2024 Calcaneal spur, right foot (ICD-10 - M77.31) 09/26/2024 Plantar fasciitis, right (ICD-10 - M72.2) 09/26/2024 Right foot pain (ICD-10 - M79.671) 09/05/2024 Calcaneal spur, right foot (ICD-10 - M77.31) 12/06/2023 Pain in left toe(s) (ICD-10 - M79.675) 09/26/2024 Other Pt is to finish the NSAID's as presceibed and to continue to stretch the plantar fascia and achilles tendon right as previously instructed for the next 2-3 months Plan Of Treatment Pending Test Test Name Order Date X ray : Foot, right 3V 09/05/2024 Insurance Providers Payer Name Payer Address Payer Phone Subscriber Number Group Number Insured Name Patient Relationship to Insured Coverage Start Date Coverage End Date Blue Benefits [address] [address] [place] [address] [id number] Lorraine Rojas Self - patient is the insured Medical (General) History Medical History History ICD Code Chicken pox Surgical History Surgery Date(Month/Year) tubal ligation 03/03/14
--- OUTSIDE RECORDS SUMMARY | 2024-12-04 15:49 | XMS_ITS ---
[facility] Address [address] [place] [address] Care Team Providers Care Portable Pinch Riveter Name Role Phone Franci Thakkar MD Primary Care Provider Unavaila Hector Patel [phone] REASON FOR VISIT rs 09/19 appt Encounters Encounter [facility] Date [facility] [address] [facility]/14/[facility] Hector Del Castillo Plan Of Treatment No Information Progress Notes * BOB LorraineDOB:[birth year] (53 yo F)Acc No.[id number]:09/14/2024 Patient:?Lorraine ROJAS :1970???Age:53 Y???Sex:Female Address:[address] [place] [address], [address] * true * Date:? Generated for Shannoni marlene/Delmis/eTransmitting on:?12/04/2024 03:49 PM EDT
--- OUTSIDE RECORDS SUMMARY | 2024-12-04 15:49 | XMS_ITS | Clinical Summary ---
Author Organization [facility] Address [address] [place] [address] Care Team Providers Care Steel Sampler Name Role Phone Franci Thakkar MD Primary Care Provider [phone] Allergies No known active allergies Medications Medication Sig Dispensed Refills Start Date End Date Status brompheniramine-pse udoephedrine-DM (BROMFED DM) 30-2-10 MG/5ML syrupIndications:Vi ral URI with cough Take 10 mL by mouth 4 (four) times a day as needed for congestion or cough. 120 mL 11/12/2024 Active benzonatate (TESSALON) 200 MG capsuleIndications: Viral URI with cough Take 1 capsule (200 mg total) by mouth 3 (three) times a day as needed for cough. 20 capsule 11/12/2024 Active Active Problems No known active problems Encounters Date Type Department Care Team Description 11/12/2024 8:15 AM EST Office Visit [facility] [address] [place] [address] Raheel Burris MD Nguyen, Nam V, PA Viral URI with cough (Primary Dx) 11/12/2024 Travel 11/12/2024 Scanned Document [facility] [address] [facility] [address] [place] [id number] Provider, Generic 11/12/2024 Scanned Document [facility] [address] [facility] [address] [facility] [place] [address] Provider, Generic from Last 3 Months Social History Tobacco Use Types Packs/Day Years Used Date Smoking Tobacco: Never Assessed Sex and Gender Information Value Date Recorded Sex Assigned at Not on file Gender Identity Not on file Sexual Orientation Not on file Last Filed Vital Signs Vital Sign Reading Time Taken Comments Blood Pressure 121/80 11/12/2024 8:34 AM EST Pulse 83 11/12/2024 8:34 AM EST Temperature 36.3 ??C (97.3 ??F) 11/12/2024 8:34 AM ES T Respiratory Rate - - Oxygen Saturation 96% 11/12/2024 8:34 AM EST Inhaled Oxygen Concentration - - Weight - - Height - - Body Mass Index - - Plan of Treatment Health Maintenance Due Date Last Done Comments Hepatitis C Virus Screening 1972 HIV Screening 1985 DTaP/Tdap/Td Vaccines (1 - Tdap) 1991 Hepatitis B Vaccines (1 of 3 - 19+ 3-dose series) 09/20 Pap Smear (Ages 21-65) 1993 Mammogram 2012 Colonoscopy 2017 Pneumococcal Vaccines 50+ (1 of 1 - PCV) 2022 Zoster (Shingles) Vaccine (1 of 2) 2022 Influenza Vaccine 04/20/2024 COVID-19 Vaccine ( - season) 2024 Care Teams Steel Sampler Relationship Specialty Start Date End Date Franci Thakkar MD [address] [place] [address] PCP - General 11/12/24
--- OUTSIDE RECORDS SUMMARY | 2024-12-04 15:49 | XMS_ITS ---
Author Organization [facility] Address [address] [place] [address] Care Team Providers Care Information Technology Specialist Name Role Phone Franci Thakkar MD Primary Care Provider Hector Moody Unavailable [phone] Allergies No Known Allergies REASON FOR VISIT pcp 03/2024, Heel Pain Medications Medication SIG (Take, Route, Frequency, Duration) Notes Start Date End Date Status Vitamin D Active Tylenol Arthritis Pain Active LamISIL 250 MG 1 tablet Orally Once a day for 30 days 04/26/2023 Not-Taking Ciclopirox 0.77 % 1 application to affected area Externally Twice a day for 365 days Not-El ing Diclofenac Sodium 75 MG 1 tablet with fo od Orally Twice a day for 30 days 09/05/2024 Active Ferrous Sulfate 325 (65 Fe) MG 1 tablet Orally Three times a Week Active LFT . . . . for . Not-Taki ng Social History Tobacco Use: Social History Observation [...] Status Risk Notes Problem Plantar fascial fibromatosis (59767760) Plantar fasciitis, right (M72.2) Active confirmed Vital Signs Height 5ft 2in in 09/26/2024 Weight 235 lbs 09/26/2024 BMI 42.98 kg/m2 09/26/2024 Blood pressure systolic 110 mm Hg 09/26/19 25 Blood pressure diastolic 69 mm Hg 025 Encounters Encounter Location Date Provider Diagnosis [facility] [address] [address] 09/26/2024 Hector Del Castillo Calcaneal spur, righ t foot M77.31 ; Plantar fasciitis, right M72.2 and Right foot pain M79.671 Assessments Encounter Date Diagnosis (ICD Code) Assessment Notes Treatment Notes Treatment Clinical Notes Section Notes 09/26/2024 Calcaneal spur, right foot (ICD-10 - M77.31) 09/26/2024 Plantar fasciitis, right (ICD-10 - M72.2) 09/26/2024 Right foot pain (ICD-10 - M79.671) 09/26/2024 Other Pt is to finish the NSAID's as presceibed and to continue to stretch the plantar fascia and achilles tendon right as previously instructed for the next 2-3 months Plan Of Treatment Treatment Notes Assessment Notes Other Pt is to finish the NSAID's as presceibed and to continue to stretch the plantar fascia and achilles tendon right as previously instructed for the next 2-3 months Next Appt Details Follow Up: 2 Weeks, Reason: Progress Notes * Shabana ROJASstarDOB:[birth year] (54 yo F)Acc No.[id number]:09/26/2024 Progress Notes Patient:?Lorraine ROJAS Provider:?Hector Del Castillo D.P.M. :1970???Age:53 Y???Sex:Female D ate:09/26/2024 Address:[address] [place], [place] [id number] Pcp:Franci Thakkar MD Subjective: * Chief Complaints: * ???Pcp 03/2024Heel Pain * HPI: ???Heel pain:?Nature:?aching, throbbing, sharp pain.?Location:?Proximal plantar aspect of Heel, RIGHT, mid heel, Bottom, RIGHT , Proximal plantar aspect of Heel, RIGHT.?Duration:?a year or more??.?Onset/Cause:?activity.?Course:?improved?at approximately 90%.?Aggravated:?standing, walking,??.?Treatments:?rest/alter normal daily activity,?.?Severity/Quality:?States 1 out of 10.? * ROS:?General/Constitutional:?Nausea?denies.?Vomiting?denies.?Hunger Thirst?denies.?Loss appetite?denies.?Chills?denies.?Fatigue?denies.?Fever?denies.?Night Sweats?denies.?Unexplained weight loss?denies.?Unexplained weight gain?admits.?HEENTM:?Dentures?denies.?Dizziness?denies.?Glasses/contacts?admits.?Retinopathy?de nies.?Blurred/double vision?denies.?TMJ?denies.?Discharge/drainage?denies.?Implants?denies.?Sore throat?denies.?Dental implants?denies.?Hard of hearing ?denies.?Difficulty chewing/swallowing/speaking?denies.?Nose bleeds?denies.?Sore mouth?denies.?Respiratory:?On Oxygen?denies.?Pneumonia/pleurisy?denies.?Bronchitis?denies.?Emphysema?denies.?C oughing?denies.?Cough blood?denies.?Shortness of breath?denies.?Wheezing?denies.?Cardiovascular:?Pacemaker?denies.?MVP?denies.?WPW?denies.?CHF?denies.?Heart attack?denies.?Septal defect?denies.?Rapid beat?denies.?Chest pain ?denies.?Atrial Fib.?denies.?Murmur/Palpitations?denies.?Gastrointestinal:?Hemorrhoids?denies.?Stomach/Abdominal pain?denies.?Dark blood stool?denies.?Irritable bowel ?denies.?Constipation?denies.?Diarrhea?denies.?Hematology:?Swelling?denies.?Clots?denies.?Varicose Veins?denies.?Bruising?denies.?Bleeding problem?denies.?Genitourinary:?Blood urine?denies.?Frequent/Painfu/urination/bladder control?denies.?Kidney stones?denies.?Infection (UTI)?denies.?Nephropathy?denies.?sex trans dis (STD)?denies.?Prostate?denies.?Musculoskeletal:?Hammertoes?denies.?Bunions?denies.?Back Pain?denies.?Muscle Cramps/ Resting?denies.?Muscle cramps / walking?denies.?Generalized aches and pains?denies.?Weakness?denies.?Integ.:?Hernandez?denies.?Scars?denies.?Corns/calluses?denies.?Ingrown nails?denies.?Painful nails?admits.?Open Sores?denies.?Rashes?denies.?Neurologic:?Difficulty sleeping?denies.?Brain disorder?denies.?Numbness?admits.?Balance trouble?denies.?Confusion?denies.?Fainting/blackouts?denies.?Tingling?denies.?Tr emors?denies.? * Medical History:? * Surgical History:?tubal liga tion 03/03/14 * Hospitalization/Major Diagno stic Procedure:?Denies Past Hospitalization * Family History:?Mother: dece ased.?Father: , diagnosed with Unspecified heart disease.?Siblings: diagnosed with Other malignant neoplasm of unspecified site.? * Social History:?Tobacco Use:?Tobacco use other than smoking?Are you an other tobacco user??No ?Tobacco Control (Standard)?Tobacco use:?Former smoker ?Additional Findings: Tobacco non-user?Ex-cigarette smoker ???Drugs/Alcohol:?Drugs?Have you used drugs other than those for medical reasons in the past 12 months??No ???Miscellaneous:?Caffeine: yes. ?Children: yes, 2. ?Exercise: no. ?Marital status: single. ?Occupation: [employer] ???Drug/Alcohol:?AUDIT-C (Standard)?Did you have a drink containing alcohol in the past year??No ?Points?0 ?Interpretation?Negative * Medications:?TakingFerrous S ulfate 325 (65 Fe) MG Tablet 1 tablet Orally Three times a Week Tylenol Arthritis Pain Vitamin D Diclofenac Sodium 75 MG Tablet Delayed Release 1 tablet with food Orally Twice a day Taking Ferrous Sulfate 325 (65 Fe) MG Tablet 1 tablet Orally Three times a Week Taking Tylenol Arthritis Pain Taking Vitamin D Taking Diclofenac Sodium 75 MG Tablet Delayed Release 1 tablet with food Orally Twice a day Not-Taking/PRNCiclopirox 0.77 % Gel 1 application to affected area Externally Twice a day LamISIL 250 MG Tablet 1 tablet Orally Once a day LFT . . . . . Medication List reviewed and reconciled with the patientNot-Taking/PRN Ciclopirox 0.77 % Gel 1 application to affected area Externally Twice a day Not-Taking/PRN LamISIL 250 MG Tablet 1 tablet Orally Once a day Not-Taking/PRN LFT . . . . . Medication List reviewed and reconciled with the patient * Allergies:?N.K.D.A.yes[Aller gies Verified] Objective: * Vitals:?Ht: 5ft 2in, Wt:235, BMI:42.98, Shoe size: 7.5, BP:110/69mm Hg, Ht-cm: 157.48 cm, Wt-k.59 kg. * Examination: ???General Examination: ?GENERAL APPEARANCE:?Reveals a pleasant, alert, well-nourished, well- developed, well hydrated individual, who demonstrates proper attention to hygiene/body habitus, and is in no acute distress, Pt serves as own?historian for office visit today ,?.?ORIENTED:?person, place, and time??.?Neurological: ?SENSORY:?Neurological exam reveals intact sensorium, pain sensation normal, vibration sensation intact, pinprick sensation is normal in the lower extremities, Pt denies, anesthesia, burning, paresthesia, tingling, B/L?.?TINEL'S COMPRESSION:?Negative tarsal tunnel, yanick pedis, and medial calcaneal nerves??.?DEEP TENDON REFLEXES:?Achilles, 2/4, B/L.?Vascular: ?DP PULSES (B):?3/4, B/L?.?PT PULSES (B):?3/4, B/L??.?CAPILLARY FILL TIME:?immediate, all digits, B/L??.?TROPHIC CONDITION-TEXTURE/ELASTICITY/TURGOR/HAIR GROWTH (B):?normal, B/L?.?TEMPERTURE GRADIENT (C):?warm to cool, proximal to distal, B/L.?PIGMENTATION:?normal, B/L.?EDEMA (C):?absent, B/L.?Dermatologic: ?SKIN FINDINGS:?Skin exam reveals normal texture, elasticity, and turgor. There are no masses. The interspaces are clear.?Orthopedic: ?MUSCLE STRENGTH:?5/5 all groups in a symmetrical fashion , B/L , 5/5 all groups in a symmetrical fashion , B/L.?GAIT ABNORMALITY:?antalgic??.?FOOT MORPHOLOGY:?Pes Planus structure, Decreased Ankle joint dorsiflexion ROM, knee extended.?FOOTWEAR:?shoe gear properties exacerbate patients foot/toe deformity.?Heel Pain: ?INSPECTION:?90% improved with no pain on Palpation to Plantar Fascia med. and central bands, intrinsic musc., infra-calcaneal bursa, and med calc tubercle, RIGHT foot, No pain: posterior/superior heel, Achilles bursa/tendon, sinus tarsi, peroneals, or with lateral heel compression; no limited STJ ROM, ca loror ecchymosis.? Assessment: * Assessment: 1.?Calcaneal spur, right leena t - M77.31???2.?Plantar fasciitis, right - M72.2 (Primary)???Specify :Chronic problem, Stable (1=3,2=4) Response to treatment - Improvement???3.?Right foot pain - M79.671??? Plan: * Treatment: * Procedure Codes:? * Preventive Medicine:? ??Counseling:?Discussion:?-13: Office or other outpatient visit for the evaluation and management of an established patient, which required a medically appropriate history and/or examination and LOW level of DECISION MAKING for: 1 STABLE ACUTE UNCOMPLICATED PROBLEM, 2 OR MORE MINOR PROBLEMS, OR 1 STABLE CHRONIC PROBLEM, THAT POSE(S) A LOW RISK FOR MORBIDITY/MORTALITY. The visit on the day of the encounter encompassed interpreting the data and educating the patient as to the nature of their condition, treatment options available according to their individual PMH, meds, allergies, and overall health/living conditions, as well as any potential risks or complications that may occur from a failure to adhere to, and participate in, the recommended course of therapy. The discussion included a complete verbal, and/or written explanation of the examination results, any x-rays taken, the proposed diagnosis, and outline of the treatment plan. A schedule for future care needs was also explained. The patient verbalized an understanding of the instructions at this time and agreed to be an active participant in their treatment. If the patient should think of any questions or concerns after the visit, I have encouraged the patient to call the office.? * Follow Up:?2 Weeks * Images: * Sign off status: Completed true * Provider:?Hector Del Castillo D.P.M. Date:?03/2025 Generated for Shannoni marlene/Delmis/eTransmitting on:?12/04/2024 03:49 PM EDT History and Physical Notes * HPI (History of Present Illness) Category Sub-Category Detail Notes Category Not es Heel pain Duration: a year or more Nature: aching, throbbing, s harp pain Severity/Quality: States 1 out of 10 Location: Proximal plantar asp ect of Heel, RIGHT, mid heel, Bottom, RIGHT , Proximal plantar aspect of Heel, RIGHT Onset/Cause: activity Aggravated: standing, walking, Course: improved at approxim ately 90% Treatments: rest/alter normal da pat activity, Examination Category Sub-Category Detail Notes Category Not es Neurological SENSORY: Neurological exa m reveals intact sensorium, pain sensation normal, vibration sensation intact, pinprick sensation is normal in the lower extremities, Pt denies, anesthesia, burning, paresthesia, tingling, B/L TINEL'S COMPRESSION: Negative tarsal nadya melanie, yanick pedis, and medial calcaneal nerves DEEP TENDON REFLEXES: Achilles, 2/4, B/L Dermatologic SKIN FINDINGS: Skin exam reveal s normal texture, elasticity, and turgor. There are no masses. The interspaces are clear Orthopedic GAIT ABNORMALITY: antalgic FOOT MORPHOLOGY: Pes Planus structure , Decreased Ankle joint dorsiflexion ROM, knee extended FOOTWEAR: shoe gear properties exacerbate patients foot/toe deformity MUSCLE STRENGTH: 5/5 all groups in a symmetrical fashion , B/L , 5/5 all groups in a symmetrical fashion , B/L General Examination GENERAL APPEARANCE: Reveals a pleasant, alert, well- nourished, well-developed, well hydrated individual, who demonstrates proper attention to hygiene/body habitus, and is in no acute distress, Pt serves as own historian for office visit today , ORIENTED: person, place, and t marian Vascular DP PULSES (B): 3/4, B/L PT PULSES (B): 3/4, B/L CAPILLARY FILL TIME: immediate, all digi ts, B/L TEMPERTURE GRADIENT (C): warm to cool, p roximal to distal, B/L TROPHIC CONDITION-TEXTURE/ELASTICITY/TURGOR/HAIR GROWTH (B): normal, B/L EDEMA (C): absent, B/L PIGMENTATION: normal, B/L Heel Pain INSPECTION: 90% improved wit h no pain on Palpation to Plantar Fascia med. and central bands, intrinsic musc., infra-calcaneal bursa, and med calc tubercle, RIGHT foot, No pain: posterior/superior heel, Achilles bursa/tendon, sinus tarsi, peroneals, or with lateral heel compression; no limited STJ ROM, ca loror ecchymosis
--- OUTSIDE RECORDS SUMMARY | 2024-12-04 15:49 | XMS_ITS ---
Author Name [facility] Organization Unknown History of Medication Use Medication Directions Dispensed Refills Start Date End Date Stat us benzonatate (TESSALON) 200 MG capsule Take 1 capsule (200 mg total) by mouth 3 (three) times a day as needed for cough. 11/12/2024 active brompheniramine-pseud oephedrine-DM (BROMFED DM) 30-2-10 MG/5ML syrup Take 10 mL by mouth 4 (four) times a day as needed for congestion or cough. 11/12/2024 active Problems Problem Status Onset Date Problem Type Date of Resoluti on Source Viral URI with cough active EncounterDiagnosisAct CCT Encounters Encounter Type Encounter Reason Primary Diagnosis Location Date Ambulatory Acute upper respiratory infection, unspecified Acute upper respiratory infection, unspecified [employer] [facility] 11/12/2024 Care Team Organization Name Specialty Phone Email Start Date End Da te [facility] Franci Thakkar Primary Care 11/29/2024 [employer] Franci Thakkar Primary Care 11/12/2024 [employer] 11/12/2024
--- OUTSIDE RECORDS SUMMARY | 2024-12-04 15:49 | XMS_ITS ---
[facility] Address [address] [place] [address] Care Team Providers Care Non Destructive Testing Specialist Name Role Phone Franci Thakkar MD Primary Care Provider Hector Moody [phone] Encounters Encounter Location Date Provider Diagnosis [address] [address] 09/19/2024 Hector Del Castillo Plan Of Treatment No Information Progress Notes * Lorraine ROJASDOB:[birth year] (54 yo F)Acc No.[id number]:09/19/2024 Progress Notes Patient:Lorraine LATHAM Provider:?Hector Del Castillo D.P.M. :1970???Age:53 Y???Sex:Female D ate:09/19/2024 Address:[address] [place], [place] [id number] Pcp:Franci Thakkar MD Subjective: * Chief Complaints: * ??? * Medical History:? Objective: * Vitals:? Assessment: Plan: * Treatment: * Images: * The named appointment provid er may or may not be the originator of this progress note, and it is not deemed complete until electronically signed by the appointment provider. Sign off status: Pending * Provider:?Hector Del Castillo D.P.M. Date:?08/22 Generated for Yang rosario/Delmis/eTransmitting on:?12/04/2024 03:49 PM EDT
--- OUTSIDE RECORDS SUMMARY | 2024-12-04 15:49 | XMS_ITS | Encounter Summary ---
Author Organization [facility] Address [address] [place] [address] Care Team Providers Care Precision Printing Worker Name Role Phone Franci Thakkar MD Primary Care Provider [phone] Encounter Details Date Type Department Care Team (Latest Contact Info) Description 11/12/2024 Travel Social History Tobacco Use Types Packs/Day Years Used Date Smoking Tobacco: Never Assessed Sex and Gender Information Value Date Recorded Sex Assigned at Not on file Gender Identity Not on file Sexual Orientation Not on file documented as of this encounter Plan of Treatment Not on file documented as of this encounter Visit Diagnoses Not on filedocumented in this encounter Care Teams Precision Printing Worker Relationship Specialty Start Date End Date Franci Thakkar MD [address] [place] [address] PCP - General 11/12/24 documented as of this encounter
--- OUTSIDE RECORDS SUMMARY | 2024-12-04 15:49 | XMS_ITS | Encounter Summary ---
Author Organization [facility] Address [address] [place] [address] Care Team Providers Care Quality Reviewer Name Role Phone Franci Thakkar MD Primary Care Provider [phone] Reason for Visit * Reason Comments Cough X 1 week Encounter Details Date Type Department Care Team ([facility] st Contact Info) Description 11/12/2024 8:15 AM EST Office Visit [facility] [address] [place] [address] Raheel Burris MD [address] [place] [address] Gene Chase PA [address] [place], [place] [address] Viral URI with cough (Primary Dx) Social History Tobacco Use Types Packs/Day Years Used Date Smoking Tobacco: Never Assessed Sex and Gender Information Value Date Recorded Sex Assigned at Not on file Gender Identity Not on file Sexual Orientation Not on file documented as of this encounter Last Filed Vital Signs Vital Sign Reading Time Taken Comments Blood Pressure 121/80 11/12/2024 8:34 AM EST Pulse 83 11/12/2024 8:34 AM EST Temperature 36.3 ??C (97.3 ??F) 11/12/2024 8:34 AM ES T Respiratory Rate - - Oxygen Saturation 96% 11/12/2024 8:34 AM EST Inhaled Oxygen Concentration - - Weight - - Height - - Body Mass Index - - documented in this encounter Progress Notes * RADHA Hall - 11/12/2024 8:42 AM EST Assessment & Plan Lorraine was seen today for cough. Diagnoses and all orders for this visit: Viral URI with cough - pjrelgvdpagesta-prokhhtymuckcvb-KR (BROMFED DM) 30-2-10 MG/5ML syrup; Take 10 mL by mouth 4 (four) times a day as needed for congestion or cough. - benzonatate (TESSALON) 200 MG capsule; Take 1 capsule (200 mg total) by mouth 3 (three) times a day as needed for cough. Medical Decision Making: Patient diagnosis is viral URI. The patient is not ill-appearing and in no acute respiratory distress. There is no evidence of stridor, hypoxia, or abnormal pulmonary exam. Absence of abnormal vital signs and abnormal chest examination, therefore no imaging indicated. At this time, I recommend supportive care and symptomatic therapy. The pt/family was advised that some dzs present atypically & the pt was given explicit DC instructions. No LOS data to display During the day of the visit, time was spent including the following: Examining the patient Chart review in preparation for the visit Documenting in the patient record The care plan including medications and self-management goals were reviewed to the best of the Patient and/or family's ability. All questions and concerns were answered. Patient and/or family verbalized understanding of the plan of care. Jhony Rojas is a 54 y.o. female HPI Chief Complaint: cough and congestion Location: Nasal and Sinus Duration: 7 Days Context: Acute Severity: Moderate Other Pertinent History: The patient has cough, nasal congestion, runny nose, sore throat and general malaise. There is no fever, SOB, CP or abdominal pain. Symptoms not alleviated by OTC therapy. I have reviewed the patients medications, allergies, past medical history, social history and family history as documented. History reviewed. No pertinent past medical history. History reviewed. No pertinent surgical history. History reviewed. No pertinent family history. Review of Systems: All other systems reviewed & are negative except where documented: Objective Vitals: 11/12/24 0834 BP: 121/80 Pulse: 83 Temp: 97.3 ??F (36.3 ??C) SpO2: 96% Vital signs reviewed. Constitutional: Alert, No apparent respiratory distress. Does not appear toxic Eyes: Conjunctivae Clear, No Icterus Ear, Nose, Mouth, Throat: Grossly normal inspection. Normal voice, handling secretions normally. OPwith injection; Neg SCAFFOLD WORKER, TMs nl bilaterally. Neg Sinus Tenderness, Nares congested bilaterally Neck: Supple, +Tender anterior cervical nodes bilateral, negative Laryngeal tenderness; Normal thyroid Respiratory: Clear lung sounds Cardiovascular: Regular rate and rhythm. No murmurs, rubs, or gallops. Gastrointestinal: NT, soft, + BS Skin: Normal; No rash No splinter hemorhages Musculoskeletal: No extremity tenderness Neurologic: Normal gait No results found for this or any previous visit. RADHA Palafox 11/12/24 8:46 AM documented in this encounter Plan of Treatment Not on file documented as of this encounter Visit Diagnoses Diagnosis Viral URI with cough- Primary documented in this encounter Care Teams Quality Reviewer Relationship Specialty Start Date End Date Franci Thakkar MD [address] [place] [address] PCP - General 11/12/24 documented as of this encounter
--- OUTSIDE RECORDS SUMMARY | 2024-12-04 15:49 | XMS_ITS | Encounter Summary ---
Author Organization [facility] Address [address] [place] [address] Care Team Providers Care Wastewater Plant Civil Engineer Name Role Phone Franci Thakkar MD Primary Care Provider [phone] Encounter Details Date Type Department Care Team (Late st Contact Info) Description 11/12/2024 Scanned Document [address] [place] [address] [phone] Provider, Generic Social History Tobacco Use Types Packs/Day Years Used Date Smoking Tobacco: Never Assessed Sex and Gender Information Value Date Recorded Sex Assigned at Not on file Gender Identity Not on file Sexual Orientation Not on file documented as of this encounter Plan of Treatment Not on file documented as of this encounter Visit Diagnoses Not on filedocumented in this encounter Care Teams Wastewater Plant Civil Engineer Relationship Specialty Start Date End Date Franci Thakkar MD [address] [place] [address] PCP - General 11/12/24 documented as of this encounter
--- OUTSIDE RECORDS SUMMARY | 2024-12-04 15:49 | XMS_ITS | Encounter Summary ---
Author Organization [facility] Address [address] [place] [address] Care Team Providers Care Home Health Travel Pt Name Role Phone Franci Thakkar MD Primary Care Provider [phone] Encounter Details Date Type Department Care Team (Late st Contact Info) Description 11/12/2024 Scanned Document [address] [place] [address] [phone] Provider, Generic Social History Tobacco Use Types [...] on filedocumented in this encounter Care Teams Home Health Travel Pt Relationship Specialty Start Date End Date Franci Thakkar MD [address] [place] [address] PCP - General 11/12/24 documented as of this encounter
== END 2024-12-04 15:21 | disposition home or self-care (01) ==
LOC: HO.HMCC 13:34
PROVIDERS: PCP Internal Medicine; Visit Provider Internal Medicine
DX: Z68.41 Body mass index [BMI] 40.0-44.9, adult (principal); E78.5 Hyperlipidemia, unspecified

== ENCOUNTER → 2024-12-04 13:33 | Outpatient (BNVA) | payer OTHER, SELFPAY | PROVIDERS: PCP Internal Medicine; Visit Provider Internal Medicine | DX: E78.5 Hyperlipidemia, unspecified (principal) | CPT/HCPCS: 96127 ==

== ENCOUNTER 2025-06-18 06:30 | Outpatient (REF) | payer OTHER, SELFPAY ==
--- OUTSIDE RECORDS SUMMARY | 2024-09-19 10:45 | XMS_ITS ---
[facility] Address [address] [place] [address] Care Team Providers Care Supervisor [employer] Name Role Phone Franci Thakkar MD Primary Care Provider UnavailAriadne Lundy Unavailable [phone] Hector Del Castillo [phone] Encounters Encounter Location Date Provider Diagnosis [address] [address] 09/19/2024 Hector Del Castillo Plan Of Treatment Next Appt Details Provider Name:Ariadne brown, 06/19/2025 03:45:00 PM, [address] [facility], [address], [place], [address], Progress Notes * Sneha ROJASdavidDOB:[birth year] (54 yo F)Acc No.[id number]:09/19/2024 Progress Notes Patient: Lorraine LARIOS Provider: Jessica Del Castillo D.P.M. :1970 A ge:53 Y S ex:Female Date:09/19/2024 Address:[place], [id number] Pcp:Franci Thakkar MD Subjective: * Chief Complaints: * * Medical History: Objective: * Vitals: Assessment: Plan: * Treatment: * Images: * The named appointment provid er may or may not be the originator of this progress note, and it is not deemed complete until electronically signed by the appointment provider. Sign off status: Pending * Provider: Jessica Del Castillo D.P.M. Date: Generated for Yang rosario/Delmis/Chuy on: 0 06/18/2025 06:40 AM EDT
--- OUTSIDE RECORDS SUMMARY | 2025-06-18 06:40 | XMS_ITS | Encounter Summary ---
Author Organization [facility] Address [address] [place] [address] Care Team Providers Care Java Sybase Developer Name Role Phone Franci Thakkar MD Primary Care Provider [phone] Encounter Details Date Type Department Care Team (Late st Contact Info) Description 11/12/2024 Scanned Document [address] [place] [address] [phone] Provider, Generic Social History Tobacco Use Types Packs/Day Years Used Date Smoking Tobacco: Never Assessed Comments Unknown Sex and Gender Information Value Date Recorded Sex Assigned at Not on file Legal Sex Female 7:53 AM EST Gender Identity Not on file Sexual Orientation Not on file documented as of this encounter Plan of Treatment Not on file documented as of this encounter Visit Diagnoses Not on filedocumented in this encounter Care Teams Java Sybase Developer Relationship Specialty Start Date End Date Franci Thakkar MD [address] [place] [address] PCP - General 11/12/24 documented as of this encounter
--- OUTSIDE RECORDS SUMMARY | 2025-06-18 06:40 | XMS_ITS | Patient Health Record ---
Author Organization [facility] Address [address] [place] [address] Care Team Providers Care Aboriginal Ceremonial Celebrant Name Role Phone Franci Thakkar MD Primary Care Provider UnavailAriadne Lundy Unavailable [phone] Hector Del Castillo Unavailable [phone] Allergies No Known Allergies Reason For Referral No Information Medications Medication SIG (Take, Route, Frequency, Duration) Notes Start Date End Date Status Vitamin D Active Tylenol Arthritis Pain Active Ciclopirox 0.77 % 1 application to affected area Externally Twice a day; Duration: 365 days Not-Taking Diclofenac Sodium 75 MG 1 tablet with fo od Orally Twice a day; Duration: 30 days 09/05/2024 Not-Taking Ferrous Sulfate 325 (65 Fe) MG 1 tablet Orally Three times a Week Active predniSONE 5 MG 4 tablets once a day for 3 days, 3 tablets once a day for 3 days, 2 tablets once a day for 3 days, 1 tablet once a day for 3 days Orally; Duration: 12 days 04/24/2025 Active LamISIL 250 MG 1 tablet Orally Once a day; Duration: 30 days 04/26/2023 Not-Takin g LFT . . . .; Duration: . N ot-Taking Immunizations Vaccine Route Administration Date Status Comme nts Influenza Unknown 05/22/2024 Administered Social History Tobacco Use: Social History Observation Description Date Details (start date - stop date) Never Smoker NA - NA Tobacco use other than smoking: Question Answer Notes Are you an other tobacco user? No Tobacco Control (Standard) Question Answer Notes Tobacco use: Nonsmoker Additional Findings: Tobacco non-user Current no nsmoker AUDIT-C (Standard) Question Answer Notes Did you have a drink containing alcohol in the p ast year? No Points 0 Interpretation Negative Problems Problem Type SNOMED Code ICD Code Onset Dates Problem Status W/U Status Risk Notes Problem Plantar fascial fibromatosis (40785014) Plantar fasciitis, right (M72.2) Active confirmed Problem Plantar fascial fibromatosis (93399436) Plantar fasciitis, bilateral (M72.2) Active confirmed Vital Signs Blood pressure diastolic 69 mm Hg 04/24/2025 Height 5ft 2in in 04/24/2025 Blood pressure systolic 110 mm Hg 04/24/2025 Weight 220 lbs 04/24/2025 BMI 40.23 kg/m2 04/24/2025 Encounters Encounter Location Date Provider Diagnosis [address] [address] 09/05/2024 Hector Del Castillo Pain in right foot M79.671 ; Plantar fasciitis of right foot M72.2 and Calcaneal spur, right foot M77.[address] [address] 09/26/2024 Hector Del Castillo Calcaneal spur, right foot M77.31 ; Plantar fasciitis, right M72.2 and Right foot pain M79.[address] [address] 04/24/2025 Ariadne Romero Pain in right foot M79.671 ; Plantar fasciitis, bilateral M72.2 ; Calcaneal spur, right foot M77.31 ; Other myositis of right foot M60.871 ; Bursitis of right foot M77.51 ; Pain in left foot M79.672 ; Calcaneal spur, left foot M77.32 ; Other myositis of left foot M60.872 and Bursitis of left foot M77.[address] [address] 09/14/2024 Hector Del Castillo [address] [address] 04/24/2025 Ariadne Romero Assessments Encounter Date Diagnosis (ICD Code) Assessment Notes Treatment Notes Treatment Clinical Notes Section Notes 09/05/2024 Pain in right foot (ICD-10 - M79.671) 09/05/2024 Plantar fasciitis of right foot (ICD-10 - M72.2) Patient Educated with: HEEL CORD STRETCHES.pdf (HEEL CORD STRETCHES.pdf) Patient Educated with: RICE THERAPY.pdf (RICE THERAPY.pdf) 09/26/2024 Calcaneal spur, right foot (ICD-10 - M77.31) 09/26/2024 Plantar fasciitis, right (ICD-10 - M72.2) 04/24/2025 Pain in right foot (ICD-10 - M79.671) 04/24/2025 Plantar fasciitis, bilateral (ICD-10 - M72.2) Patient Educated with: HEEL CORD STRETCHES.pdf (HEEL CORD STRETCHES.pdf) Patient Educated with: RICE THERAPY.pdf (RICE THERAPY.pdf) 09/26/2024 Right foot pain (ICD-10 - M79.671) 09/05/2024 Calcaneal spur, right foot (ICD-10 - M77.31) 04/24/2025 Calcaneal spur, right foot (ICD-10 - M77.31) 04/24/2025 Other myositis of right foot (ICD-10 - M60.871) 04/24/2025 Bursitis of right foot (ICD-10 - M77.51) 04/24/2025 Pain in left foot (ICD-10 - M79.672) 04/24/2025 Calcaneal spur, left foot (ICD-10 - M77.32) 04/24/2025 Other myositis of left foot (ICD-10 - M60.872) 04/24/2025 Bursitis of left foot (ICD-10 - M77.52) 09/26/2024 Other Pt is to finish the NSAID's as presceibed and to continue to stretch the plantar fascia and achilles tendon right as previously instructed for the next 2-3 months Plan Of Treatment Pending Test Test Name Order Date X ray : Foot, left 3V 04/24/2025 X ray : Foot, right 3V 04/24/2025 X ray : Foot, right 3V 09/05/2024 Next Appt Details Provider Name:Ariadne brown, 06/19/2025 03:45:00 PM, [address] [facility], [address], [place], [address], Insurance Providers Payer Name Payer Address Payer Phone Subscriber Number Group Number Insured Name Patient Relationship to Insured Coverage Start Date Coverage End Date Blue Benefits [address] [address] [place] [address] [id number] Lorraine Rojas Self - patient is the insured Medical (General) History Medical History History ICD Code Chicken pox Surgical History Surgery Date(Month/Year) tubal ligation 03/03/14
--- OUTSIDE RECORDS SUMMARY | 2025-06-18 06:40 | XMS_ITS | Clinical Summary ---
Author Organization [facility] Address [address] [place] [address] Care Team Providers Care Computational Physicist Name Role Phone Franci Thakkar MD Primary Care Provider [phone] Allergies No known active allergies Medications brompheniramine -pseudoephedrin e-DM (BROMFED DM) 30-2-10 MG/5ML syrupIndication s:Viral URI with cough Take 10 mL by mouth 4 (four) times a day as needed for congestion or cough. 120 mL 5 Active benzonatate (TESSALON) 200 MG capsuleIndicati ons:Viral URI with cough Take 1 capsule (200 mg total) by mouth 3 (three) times a day as needed for cough. 20 capsule 5 Active Active Problems No known active problems Social History Tobacco Use Types Packs/Day Years [...] 83 11/12/2024 8:34 AM EST Temperature 36.3 C (97.3 F) 11/12/2024 8:34 AM EST Respiratory Rate - - Oxygen Saturation 96% [...] Vaccine (1 of 2) 2022 Influenza Vaccine 04/20/2025 COVID-19 Vaccine (1 - season) 2025 Care Teams Computational Physicist Relationship Specialty Start Date End Date Franci Thakkar MD [address] [place] [address] PCP - General 11/12/24
--- OUTSIDE RECORDS SUMMARY | 2025-06-18 06:40 | XMS_ITS | Encounter Summary ---
Author Organization [facility] Address [address] [place] [address] Care Team Providers Care Forger Helper Name Role Phone Franci Thakkar MD Primary Care Provider [phone] Encounter Details Date Type Department Care Team (Late st Contact Info) Description 11/12/2024 Scanned Document [address] [place] [address] [phone] Provider, Generic Social History Tobacco Use Types [...] on filedocumented in this encounter Care Teams Forger Helper Relationship Specialty Start Date End Date Franci Thakkar MD [address] [place] [address] PCP - General 11/12/24 documented as of this encounter
--- OUTSIDE RECORDS SUMMARY | 2025-06-18 06:40 | XMS_ITS ---
Author Name [facility] Organization Unknown History of Medication Use Medication [...] infection, unspecified Acute upper respiratory infection, unspecified [email or web address] [email or web address] 11/12/2024 Care Team Organization Name Specialty Phone Email Start Date End Da te [facility] [employer] Franci Thakkar Primary Care 11/29/2024 12/20/19 [email or web address] 11/12/2024 [facility] [employer] Franci Thakkar Primary Care 11/12/2024
[2025-06-18 10:00] LABS: MANUAL DIFF FLAG NO
[2025-06-18 10:09] LABS: Appearance Urine Clear; Glucose Urine UA Negative (Negative); PH 7.0 (5.0-9.0); Specific Gravity - Urine 1.020 (1.005-1.025); UMIC TRIGGER UA YES
[2025-06-18 10:10] LABS: Hematocrit 38.9 % (37.0-47.0); Hemoglobin 12.5 g/dl (12.0-16.0); Imm Gran Abs Auto 0.02 X10*3/uL (0.00-0.03); Imm Gran Pct Auto 0.3 % (0.0-0.4); Lymphocytes Absolute Auto 1.7 X10*3/uL (1.2-4.9); Mean Corpuscular HGB Conc 32.1 g/dl (31.0-35.0); Mean Corpuscular Hemoglobin 26.4 pg (27.0-33.0); Mean Corpuscular Volume 82.1 fL (80.0-98.0); NRBC Abs Auto 0.000 X10*3/uL (0.0-0.012); NRBC Pct Auto 0.0 /100WBC (0.0-0.2); Platelet Count 276 X10*3/uL (160-400); Red Blood Count 4.74 X10*6/uL (4.20-5.50); White Blood Count 7.1 X10*3/uL (4.8-10.8)
[2025-06-18 10:44] LABS: Alanine Aminotransferase 29 U/L (0-31); Albumin Level 4.3 g/dL (3.5-5.0); Alkaline Phosphatase 87 U/L (39-117); Anion Gap 7 (12-20); Aspartate Amino Transferase 23 U/L (5-31); Blood Urea Nitrogen 13 mg/dL (9-16); Calcium 9.7 mg/dL (8.4-10.2); Carbon Dioxide 30 mmol/L (22-29); Chloride 107 mmol/L (96-108); Cholesterol 236 mg/dL (<200); Estimated Glomerular Filt Rate > 60; HDL Cholesterol 51 mg/dL (>40); Potassium 4.2 mmol/L (3.3-5.1); Sodium 140 mmol/L (135-145); Total Protein 6.8 g/dL (6.5-8.0); Triglycerides 83 mg/dL (<150)
== END 2025-06-18 06:31 | disposition home or self-care (01) ==
LOC: HO.HMGCLDS 06:30
PROVIDERS: PCP Internal Medicine; Visit Provider Internal Medicine
DX: Z00.00 Encounter for general adult medical examination without abnormal findings (principal); E78.5 Hyperlipidemia, unspecified; Z68.41 Body mass index [BMI] 40.0-44.9, adult
CPT/HCPCS: 36415; 80053; 80061; 81001; 82306; 84443; 85025

== ENCOUNTER 2025-06-20 12:47 | Outpatient (AMB) | payer OTHER, SELFPAY ==
--- OUTSIDE RECORDS SUMMARY | 2024-09-19 10:45 | XMS_ITS ---
Author Organization [facility] kaiden Felch Address [address] [place] [address] Care Team Providers Care [place] Operator Name Role Phone Franci Thakkar MD Primary Care Provider Unavaila Ariadne Garrido Unavailable [phone] Hector Del Castillo [phone] Encounters Encounter Location Date Provider Diagnosis [address] [address] 09/19/2024 Hector Del Castillo Plan Of Treatment No Information Progress Notes * Lorraine ROJASDOB:[birth year] (54 yo F)Acc No.[id number]:09/19/2024 Progress Notes Patient: Lorraine LARIOS Provider: Jessica Del Castillo D.P.M. :1970 A ge:53 Y S ex:Female Date:09/19/2024 Address:[address] [facility], [id number] Pcp:Franci Thakkar MD Subjective: * Chief Complaints: [...] Del Castillo D.P.M. Date: Generated for Yang rosario/Delmis/Uzmaitting on: 1 02:05 PM EDT
--- OUTSIDE RECORDS SUMMARY | 2025-06-19 11:45 | XMS_ITS ---
Author [facility] [place] Address [address] [place] [address] Care Team Providers Care Sports Writer Name Role Phone Franci Thakkar MD Primary Care Provider Ariadne Guzman [phone] Medications Medication SIG (Take, Route, Frequency, Duration) Notes Start Date End Date Status LFT . . . .; Duration: . N ot-Taking predniSONE 5 MG 4 tablets once a day for 3 days, 3 tablets once a day for 3 days, 2 tablets once a day for 3 days, 1 tablet once a day for 3 days Orally; Duration: 12 days 04/24/2025 Active Ciclopirox 0.77 % 1 application to affected area Externally Twice a day; Duration: 365 days Not-Taking LamISIL 250 MG 1 tablet Orally Once a day; Duration: 30 days 04/26/2023 Not-Takin g Diclofenac Sodium 75 MG 1 tablet with fo od Orally Twice a day; Duration: 30 days 09/05/2024 Not-Taking Tylenol Arthritis Pain Active Vitamin D Active Ferrous Sulfate 325 (65 Fe) MG 1 tablet Orally Three times a Week Active Encounters Encounter Location Date [facility] [address] [address] 06/19/2025 Ariadne Romero Plan Of Treatment No Information Progress Notes * Lorraine ROJASDOB:[birth year] (54 yo F)Acc No.[id number]:06/19/2025 Progress Notes Patient: Lorraine LARIOS Provider: Chelsea Romero DPM :1970 A ge:54 Y S ex:Female Date:06/19/2025 Address:[place], [id number] Pcp:Franci Thakkar MD Subjective: * Chief Complaints: * * Medical History: * Medications: T aking Ferrous Sulfate 325 (65 Fe) MG Tablet 1 tablet Orally Three times a Week , Taking Tylenol Arthritis Pain , Taking Vitamin D , Taking predniSONE 5 MG Tablet 4 tablets once a day for 3 days, 3 tablets once a day for 3 days, 2 tablets once a day for 3 days, 1 tablet once a day for 3 days Orally , Not-Taking/PRN Diclofenac Sodium 75 MG Tablet Delayed Release 1 tablet with food Orally Twice a day , Not- Taking/PRN Ciclopirox 0.77 % Gel 1 application to affected area Externally Twice a day , Not-Taking/PRN LamISIL 250 MG Tablet 1 tablet Orally Once a day , Not-Taking/PRN LFT . . . . . Objective: * Vitals: Assessment: Plan: * Treatment: * Images: * The named appointment provid er may or may not be the originator of this progress note, and it is not deemed complete until electronically signed by the appointment provider. Sign off status: Pending * Provider: Chelsea Romero DPM Date: 0 06/19/2025 Generated for Yang rosario/Delmis/Uzmaitting on: 02:05 PM EDT
[2025-06-20 13:14] VITALS: BP 120/70; PULSE 85; RESP 19; TEMP 36.8; O2SAT 96; BMI 41.7
--- NOTE | 2025-06-20 13:14 | A.OFFPC_ITS ---
Vital Signs 06/20/25 13:14 Height 5 ft 2 in Weight 228 lb BMI 41.7 BP 120/70 Blood Pressure Location Rt brachial Position Sitting Respiration 19 Pulse 85 Pulse Source Pulse Oximeter Temp 98.2 F Temp Source Oral Pulse Oximetry (%) 96 Oxygen Delivery Method Room Air Intake Visit Reasons: PE Intake Note: Pt is here today for PE. Allergies No Known Allergies Allergy (Verified 06/20/25 13:18) Medication List - Last Reconciled 06/20/25 by Franci Thakkar MD acetaminophen ER (Tylenol Arthritis Pain) 1,300 mg PO Q8H cholecalciferol (vitamin D3) 25 mcg PO DAILY lactobacillus combination no.9 (Adult 50 Plus Probiotic) PO multivitamin with iron (Daily Vitamin with Iron) PO pravastatin 20 mg PO DAILY psyllium husk (Daily Fiber) PO Tobacco use date assessed: 06/20/25 Dental Screening Dental Screen Date: 12/04/24 HPI PE HPI Details Pt presents for PE. PFSH Medical History (Updated 06/20/25 @ 14:01 by Franci Thakkar MD) BMI 40.0-44.9, adult Obese Hyperlipidemia Diverticulosis Annual physical exam Surgical History (Updated 06/20/25 @ 14:01 by Franci Thakkar MD) Hx of colonoscopy H/O LEEP Family History Father CVD (cardiovascular disease) CAD (coronary artery disease) Mother No problems noted. Social History Housing: House Alcohol intake: current Alcohol intake frequency: holidays/special occasions only Patient Tobacco Use Status: Former Tobacco user e-Cigarette/Vaping Use: Never Used service: No Current occupational status: employed Cognitive needs: No Hearing needs: No Vision needs: No Questionnaire PHQ-9 Over the last 2 weeks, how often have you been bothered by any of the following problems? 1. Little interest or pleasure in doing things: not at all 2. Feeling down, depressed, or hopeless: not at all 3. Trouble falling or staying asleep, or sleeping too much: not at all 4. Feeling tired or having little energy: not at all 5. Poor appetite or overeating: not at all 6. Feeling bad about yourself - or that you are a failure or have let yourself or your family down: not at all 7. Trouble concentrating on things, such as reading the newspaper or watching television: not at all 8. Moving or speaking so slowly that other people could have noticed. Or the opposite - being so fidgety or restless that you have been moving around a lot more than usual: not at all 9. Thoughts that you would be better off or of hurting yourself in some way: not at all Total score: 0 Depression Screening Interpretation: Negative Depression Screening Done: Yes Source: Developed by Drs. Michael Espino, Germania Marte, Vince Guerrier and colleagues, with an educational sergey from [employer]. Thrive Questionnaire Date Thrive assessed: 12/04/24 I am a: Patient What is your living situation today?: I have a steady place to live Within the past 12 months, did the food you bought not last and you didn't have the money to get more?: Never true Within the past 12 months, did you worry whether your food would run out before you got money to buy more?: Never true Do you have trouble paying for medicines?: No Do you have trouble getting transportation to medical appointments?: No Do you have trouble paying your heating and electricity bill?: No Do you have trouble taking care of your child, family member or friend?: No Do you have trouble with day-to-day activities such as bathing, preparing meals, shopping, managing finances, etc.?: No Are you currently unemployed and looking for a job?: No Are you interested in more education?: No Please select the resources that you would like help with: None Currently or been in a relationship where the following occur: No concerns reported THRIVE Score: 0 RUBEN-7 AMB Questionnaire RUBEN-7 Date RUBEN - 7 assessed: 12/04/24 Feeling nervous, anxious, or on edge: 0 = Not at all Not being able to stop or control worryin = Not at all Worrying too much about different things: 0 = Not at all Trouble relaxin = Not at all Being so restless that it is hard to sit still: 0 = Not at all Becoming easily annoyed or irritable: 0 = Not at all Feeling afraid as if something awful might happen: 0 = Not at all Total RUBEN-7 score (0-4 normal; 5-9 mild; 10-14 moderate; 15-21 severe): 0 Source: Developed by Drs. Michael Espino, Germania Marte, Vince Guerrier and colleagues, with an educational sergey from [employer]. Review of Systems Const All systems reviewed & are unremarkable except as noted in HPI and below Eyes Reports no additional complaints ENT Reports no additional complaints Card Reports no additional complaints Resp Reports no additional complaints GI Reports no additional complaints Reports no additional complaints Physical exam (Primary Care) Vital Signs: Last Vital Signs Temp 98.2 F 06/20/25 13:14 Pulse 85 06/20/25 13:14 Resp 19 06/20/25 13:14 BP 120/70 06/20/25 13:14 Pulse Ox 96 06/20/25 13:14 Oxygen Delivery Method Room Air 06/20/25 13:14 BMI result Body Mass Index 41.7 Tobacco/Smoking Status: Tobacco use Status Tobacco use date assessed 06/20/25 06/20/25 13:21 Patient Tobacco Use Status Former Tobacco user 06/20/25 13:15 e-Cigarette/Vaping Use Never Used 06/20/25 13:15 PHQ-9: PHQ-9 Score PHQ-9: Total score 0 06/20/25 13:21 Depression Screening Interpretation: Negative Thrive Assessment: Date of Thrive Assessment Date Thrive assessed 12/04/24 06/20/25 13:15 Currently or been in a relationship where the following occur: No concerns r eported Const General: no acute distress HENMT Head: Yes normal to inspection Face and sinus: Yes normal facial exam Mouth: Normal oral and palatal mucosa present Throat: Yes posterior oropharynx normal Eyes General: appearance normal, both eyes and all related structures Neck Neck: Yes supple Resp Effort & Inspection: normal respiratory effort Auscultation: clear to auscultation bilaterally Cardio Rhythm: regular rhythm Heart sounds: S1 normal heart sound present and S2 normal heart sound present GI Inspection: Yes normal to inspection Palpation (GI): Soft to palpation Percussion: Yes normal to percussion Auscultation: normal bowel sounds Coding Level of Care Code Est Pt Prev Care 40-64y(36382) Diagnoses Hyperlipidemia E78.5 Hx of colonoscopy Z98.890 BMI 40.0-44.9, adult Z68.41 Annual physical exam Z00.00 Assessment & Plan Assessment & Plan (1) Hyperlipidemia: Code(s): E78.5 - Hyperlipidemia, unspecified Category: Medical Plan: Despite patient following low-cholesterol diet and regular exercise lipid profile still high. Pravastatin 20 mg daily will be started and side effects discussed with the patient, she will return in 2 months with a fasting labs before (2) Hx of colonoscopy: Comment: 12/2023 1 polyp TA, repeat [address] Phan Code(s): Z98.890 - Other specified postprocedural states Category: Surgical Plan: Due for colonoscopy in 4 years (3) BMI 40.0-44.9, adult: Comment: Patient did not tolerate Wegovy, had severe nausea vomiting Code(s): Z68.41 - Body mass index [BMI] 40.0-44.9, adult Category: Medical Plan: Decreasing caloric intake increasing physical activity and weight loss discussed with the patient (4) Annual physical exam: Comment: NEGATIVE PAP SMEAR 01/2021 Code(s): Z00.00 - Encounter for general adult medical examination without abnormal findings Category: Medical Plan: Patient is up-to-date with the mammogram she will return for a Pap smear in 2 months Orders: Orders Lipid Panel 2 Months E78.5 - Hyperlipidemia, unspecified Medications: New pravastatin 20 mg PO DAILY 90 tabs 2RF
--- OUTSIDE RECORDS SUMMARY | 2025-06-20 14:06 | XMS_ITS | Patient Health Record ---
[facility] Address [address] [facility] [place] [address] Care Team Providers Care Health Teacher Name Role Phone Franci Thakkar MD Primary Care Provider UnavailAriadne Lundy Unavailable [phone] Hector Del Castillo Unavailable [phone] Allergies No Known Allergies Reason For Referral [...] tablet Orally Three times a Week Active Immunizations Vaccine Route Administration Date Status Comme [...] Status Risk Notes Problem Plantar fascial fibromatosis (44481390) Plantar fasciitis, right (M72.2) Active confirmed Problem Plantar fascial fibromatosis (78997248) Plantar fasciitis, bilateral (M72.2) Active confirmed Vital Signs Blood pressure diastolic 69 mm Hg 04/24/2025 Height 5ft 2in in 04/24/2025 Blood pressure systolic 110 mm Hg 04/24/2025 Weight 220 lbs 04/24/2025 BMI 40.23 kg/m2 04/24/2025 Encounters Encounter Location Date Provider Diagnosis [address] [address] 09/05/2024 Hector Del Castillo Pain in right foot M79.671 ; Plantar fasciitis of right foot M72.2 and Calcaneal spur, right foot M77.[address] [address] 09/26/2024 Hector Del Castillo Calcaneal spur, right foot M77.31 ; Plantar fasciitis, right M72.2 and Right foot pain M79.[address] [address] 04/24/2025 Ariadne Romero Pain in right foot M79.671 ; Plantar fasciitis, bilateral M72.2 ; Calcaneal spur, right foot M77.31 ; Other myositis of right foot M60.871 ; Bursitis of right foot M77.51 ; Pain in left foot M79.672 ; Calcaneal spur, left foot M77.32 ; Other myositis of left foot M60.872 and Bursitis of left foot M77.[address] [address] 06/19/2025 Ariadne Romero [address] [address] 09/14/2024 Hector Del Castillo [address] [address] 04/24/2025 Ariadne Romero Assessments Encounter Date Diagnosis [...] Start Date Coverage End Date Blue Benefits [address] [address] [place] [address] [id number] Lorraine Rojas Self - patient is the insured Medical (General) History Medical History History ICD Code Chicken pox Surgical History Surgery Date(Month/Year) tubal ligation 03/03/14
--- OUTSIDE RECORDS SUMMARY | 2025-06-20 14:06 | XMS_ITS | Clinical Summary ---
Author Organization [facility] Address [address] [place] [address] Care Team Providers Care Pediatric Physiatrist Name Role Phone Franci Thakkar MD Primary Care Provider [phone] Allergies No known active allergies Medications brompheniramine [...] Vaccine (1 - season) 2025 Care Teams Pediatric Physiatrist Relationship Specialty Start Date End Date Franci Thakkar MD [address] [place] [address] PCP - General 11/12/24
--- OUTSIDE RECORDS SUMMARY | 2025-06-20 14:06 | XMS_ITS | Encounter Summary ---
Author Organization [facility] Address [address] [place] [address] Care Team Providers Care Combatant Swimmer Name Role Phone Franci Thakkar MD Primary Care Provider Encounter Details Date Type Department Care Team (Late st Contact Info) Description 11/12/2024 Scanned Document [address] [place] [address] [phone] Provider, Generic Social History Tobacco Use Types [...] on filedocumented in this encounter Care Teams Combatant Swimmer Relationship Specialty Start Date End Date Franci Thakkar MD [address] [place] [address] PCP - General 11/12/24 documented as of this encounter
--- OUTSIDE RECORDS SUMMARY | 2025-06-20 14:06 | XMS_ITS | Encounter Summary ---
Author Organization Formerly [facility] Address [address] [place] [address] Care Team Providers Care Shoe [employer] Associate Name Role Phone Franci hTakkar MD Primary Care Provider [phone] Encounter Details Date Type Department Care Team (Late st Contact Info) Description 11/12/2024 Scanned Document [address] [place] [address] [phone] Provider, Generic Social History Tobacco Use Types [...] on filedocumented in this encounter Care Teams Shoe [employer] Associate Relationship Specialty Start Date End Date Franci Thakkar MD [address] [place] [address] PCP - General 11/12/24 documented as of this encounter
== END 2025-06-20 13:52 | disposition home or self-care (01) ==
LOC: HO.HMCC 12:48
PROVIDERS: PCP Internal Medicine; Visit Provider Internal Medicine
DX: Z00.00 Encounter for general adult medical examination without abnormal findings (principal); E78.5 Hyperlipidemia, unspecified; Z98.890 Other specified postprocedural states; Z68.41 Body mass index [BMI] 40.0-44.9, adult